=== PATIENT | female | born 1940 | race Caucasian/White ===

== ENCOUNTER → 2017-09-18 | Outpatient (CLI) | payer MEDICARE ==
--- NOTE | 2017-09-18 15:25 | 2DMMODE ---
[place] [address] 2 D/M-MODE ECHOCARDIOGRAM Name: ELIZABETH LOPEZ Room: [facility]#: [id number] Admission: 09/18/17 Attend Phys: Solis Santos Discharge: Date of : 38 Date of Service: 09/18/17 1525 Report #: [id number] THIS REPORT FOR: //name// APPROVED REPORT Study performed: 09/18/2017 14:06:45 EXAM: Comprehensive 2D, Doppler, and color-flow Echocardiogram Patient Location: Out-Patient Status: routine BSA: 2.10 HR: 89 bpm BP: 150/80 mmHg Other Information Study Quality: Adequate Indications Aortic Valve Disease 2D Dimensions LVEF(%): 61.77 (>50%) IVSd: 13.15 (7-11mm) LVOT Diam: 20.32 (18-24mm) LVDd: 43.60 mm PWd: 12.22 (7-11mm) Ascending Ao: 29.22 (22-36mm) LVDs: 29.22 (25-40mm) Aortic Root: 27.04 mm Trinidad's LVEF: 61.77 % Volumes Left Atrial Volume (Systole) LA ESV Index: 21.00 mL/m2 Aortic Valve AoV Peak Javad.: 3.24 m/s AO Peak Gr.: 42.01 mmHg LVOT Max P.63 mmHg AO Mean Gr.: 24.29 mmHg LVOT Mean P.48 mmHg LVOT Max V: 1.08 m/s AO V2 VTI: 55.22 cm LVOT Mean V: 0.73 m/s CARYN (VTI): 1.26 cm2 LVOT V1 VTI: 21.38 cm Mitral Valve MV Peak Gr.: 9.04 mmHg MV Mean Gr.: 4.85 mmHg E/A Ratio: 0.65 [place] [address] 2 D/M-MODE ECHOCARDIOGRAM Name: ELIZABETH LOPEZ Room: [facility]#: [id number] Admission: 09/18/17 Attend Phys: Solis Santos Discharge: Date of : 38 Date of Service: 09/18/17 1525 Report #: [id number] MV Decel. Time: 281.78 ms MV E Max Javad.: 0.88 m/s MV PHT: 81.72 ms MVA (PHT): 2.69 cm2 TDI E/Lateral E': 22.00 E/Medial E': 22.00 Medial E' Javad.: 0.04 m/s Lateral E' Javad.: 0.04 m/s Pulmonary Valve PV Peak Javad.: 1.14 m/s PV Peak Gr.: 5.17 mmHg Tricuspid Valve TR Peak Gr.: 26.57 mmHg RVSP: 31.57 mmHg Left Ventricle The left ventricle is normal size. There is normal LV segmental wall motion. Mild concentric left ventricular hypertrophy. Left ventricular systolic function is normal. The left ventricular ejection fraction is within the normal range. LVEF is 60-65%. Grade I - abnormal relaxation pattern. Right Ventricle The right ventricle is normal size. The right ventricular systolic function is normal. Atria Left atrium is moderately dilated. The right atrium size is normal. Aortic Valve Aortic valve is moderately calcified. No aortic regurgitation is present. Moderate aortic stenosis. Mitral Valve Severe mitral annular calcification. Mild mitral regurgitation. No significant mitral valve stenosis. Tricuspid Valve The tricuspid valve is normal in structure. Mild tricuspid regurgitation. The RVSP is __31.6 mmHg. Pulmonic Valve The pulmonary valve is normal in structure. Mild [place] [address] 2 D/M-MODE ECHOCARDIOGRAM Name: JESSICAELIZABETH Zavala Room: [facility]#: [id number] Admission: 09/18/17 Attend Phys: Solis Santos Discharge: Date of : 38 Date of Service: 09/18/17 1525 Report #: [id number] Great Vessels The aortic root is normal in size. IVC is normal in size and collapses with >50% inspiration Pericardium There is no pericardial effusion. <Conclusion> The left ventricle is normal size. Mild concentric left ventricular hypertrophy. Left ventricular systolic function is normal. The left ventricular ejection fraction is within the normal range. LVEF is 60-65%. Grade I - abnormal relaxation pattern. The right ventricle is normal size. Left atrium is moderately dilated. Aortic valve is moderately calcified. No aortic regurgitation is present. Moderate aortic stenosis. Severe mitral annular calcification. Mild mitral regurgitation. No significant mitral valve stenosis. The tricuspid valve is normal in structure. Mild tricuspid regurgitation. The RVSP is __31.6 mmHg. IVC is normal in size and collapses with >50% inspiration There is no pericardial effusion. There is normal LV segmental wall motion. <ELECTRONICALLY SIGNED> By: Allen Chong MD, FACC 09/18/17 1525 1525 1525 Allen Chong MD, FACC /INF
== END ==
LOC: M.CRD 13:41
DX: I08.1 Rheumatic disorders of both mitral and tricuspid valves (principal)

== ENCOUNTER → 2018-03-28 | Outpatient (CLI) | payer MEDICARE ==
[~2018-03-28] MED LIST: CARDIZEM CD240 MG PO; GLIPIZIDE XL5 MG PO; IBUPROFEN 600600 M1 PO; KLOR-CON 1010 MEQ PO; LASIX 20 MG TAB20 MG PO; LOSARTAN/HCTZ PO; SYNTHROID150 MCG PO; VITAMIN D3400 UNIT PO
[2018-03-28 12:42] LABS: CREATININE 0.6 mg/dL (0.6-1.3)
== END ==
LOC: M.LAB 12:00 → M.CT 13:00
PROVIDERS: Nurse Practitioner Family
DX: I25.10 Atherosclerotic heart disease of native coronary artery without angina pectoris (principal); I35.8 Other nonrheumatic aortic valve disorders; I34.8 Other nonrheumatic mitral valve disorders; R04.2 Hemoptysis; Z85.51 Personal history of malignant neoplasm of bladder

== ENCOUNTER 2018-07-01 10:09 | Inpatient (IN) | payer MEDICARE ==
[2018-07-01] VITALS (14 sets, daily range): BP systolic 126–183; BP diastolic 61–86
[~2018-07-01] VITALS: Ht 165.1 cm; Wt 109.8 kg
--- NOTE | ~2018-07-01 | CON ---
[address] [address] CONSULTATION Name: ELIZABETH LOPEZ Room: [address] IN M.R.#: [id number] Admission: 07/01/18 Attend Phys: Ramy Barrow Discharge: Date of : 38 Report #: [id number] THIS REPORT FOR: //name// CC: Kenny Mccloud DATE OF SERVICE: 07/01/2018 HISTORY OF PRESENT ILLNESS: This is a 78-year-old female patient whose consultation was kindly requested by Dr. Castorena from Emergency Room. As I understand from him, the history was difficult in this patient. I tried to talk to the patient's and the patient herself and the history was difficult. What is clear is that this patient had an episode of speech difficulty yesterday. It lasted about 30 minutes. It resolved spontaneously. They did not seek any medical attention. Then, the patient had another episode yesterday evening when she again lost her speech. That is where the confusion was and it was not clear whether the patient returned back to the baseline or not, but after talking to the patient on a considerable amount of time, Dr. Castorena determined that the patient had returned to the baseline. Apparently, this morning, she got up and she was okay and subsequently had the speech difficulty again. Again, the history is not very clear, but after talking to the patient's and the patient as per Dr. Castorena determined that she was back to her baseline. CT scan of the head was done and that did not show any abnormality. Dr. Castorena discussed the indication, potential complication, and alternatives with the patient's and the patient and after discussing all of them and after excluding any contraindication, he started the patient on TPA and the Neurology consult was requested. I talked to Dr. Castorena on the phone and subsequently came and saw the patient in the Emergency Room. I tried to get the patient's history from the patient herself as well as the . They are very nice people, but I think they are very poor historian. The history I get is very difficult and is exactly the same what Dr. Castorena got from them. First episode she returned back to the baseline. Second episode you really have to dig into the patient's history from the as well as from the patient herself, but from all indication ultimately it would appear that the patient did return to the baseline in between. She had no prior history of stroke. REVIEW OF SYSTEMS: Indicate that she does not have any headache. She does have what looks like murmur in the heart that is for a long time. They indicated that the patient does not smoke or drink any alcohol. She is a diabetic, but her blood sugar was not too bad. She had gallbladder removed in the past. That was a relevant 14-point review of system. PAST MEDICAL HISTORY: [place] [address] CONSULTATION Name: ELIZABETH LOPEZ Room: [address] IN ..#: [id number] Admission: 07/01/18 Attend Phys: Ramy Barrow Discharge: Date of : 38 Report #: [id number] FAMILY HISTORY: Negative for early age stroke. SOCIAL HISTORY: She does not drink alcohol or smoke. PHYSICAL EXAMINATION: Indicate that the patient is alert and responsive. She could not tell me what month it is. She can follow simple command. She has pretty significant aphasia. Aphasia makes it very difficult to examine her. I can tell about the visual field, but I do not see any marked motor or sensory deficit on either side. There is no meningeal sign. Heart does indicate a murmur. Pulses are somewhat difficult to feel. There is no edema, cyanosis or jaundice. There is no thyroid mass. When she came in, her blood pressure was somewhat high at 183, but subsequently it is 171/86. LABORATORY DATA: Her white count was trace high at 11.1. I reviewed the patient's CT angio, MRI and I discussed with the radiologist. 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 MRI confirmed that there is no hemorrhage, so far. 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 That is an incidental finding and that needs to be addressed. It will be difficult to coil aneurysm and may have to be addressed some other time. RECOMMENDATIONS: 1. I had a long talk with this patient and the . She already received TPA. TPA was delayed because the history was not clear in the beginning as I mentioned above. History was that symptom has started yesterday, but then the best it could be determined, she has returned back to her baseline indicating those were TIAs and now the symptoms were permanent from today indicating that the time she had is most likely a stroke, but that is presumptive and the understand that, so she was given appropriately the TPA in the Emergency Room after excluding any contraindication as I understand. She is not a candidate for any further intervention at the moment. This is because she has no thrombus sitting in any of the large vessels. We need to follow the TPA protocol and need to keep the blood pressure lower than 180 systolic. She does need speech therapy. We will order that. We will see if she can swallow and she will need pretty extensive speech therapy in that she had a large stroke and I suspect this to be a longstanding problem. The patient was subsequently discussed with Dr. Mccloud who is admitting physician. More than 50 minutes of time was spent taking care of this patient today and majority of that time was spent counseling the patient and the family and [place] [address] CONSULTATION Name: ELIZABETH LOPEZ Room: [address] IN [facility].#: [id number] Admission: 07/01/18 Attend Phys: Ramy Barrow Discharge: Date of : 38 Report #: [id number] Thank you very much for this referral. By: 1549 [id number] Burns MD /semaj
[2018-07-01 10:30] LABS: ABSOLUTE EOSINOPHILS 0.2 thou/uL (0.0-0.7); ABSOLUTE LYMPHOCYTES 2.8 thou/uL (0.8-5.3); ABSOLUTE MONOCYTES 0.9 thou/uL (0.0-1.2); ABSOLUTE NEUTROPHILS 7.2 thou/uL (1.6-8.1); BASOPHILS 0.1 %; EOSINOPHILS 1.7 %; HEMATOCRIT 42.5 % (37.0-47.0); HEMOGLOBIN 14.2 gm/dL (12.0-15.0); LYMPHOCYTES 25.4 %; MCH 30.6 pg (26.0-34.0); MCHC 33.4 g/dL (28.0-37.0); MCV 91.4 fL (80.0-100.0); MONOCYTES 7.8 %; MPV 8.9 fl. (7.2-11.1); NUCLEATED RBCS 0 /100WBC; PLATELET COUNT* 286 thou/uL (150-400); RBC 4.65 mil/uL (4.20-5.00); RDW-CV 13.8 % (10.5-14.5); WBC 11.1 thou/uL (4.0-11.0)
[2018-07-01 10:43] LABS: APTT 25.5 Seconds (25.0-31.3); PROTIME 10.1 Seconds (9.20-11.50)
[2018-07-01 11:02] LABS: ALBUMIN 4.2 g/dL (3.4-5.0); ALKALINE PHOSPHATASE 85 U/L (46-116); ANION GAP 12 mmol/L (7-16); BUN 16 mg/dL (7-18); CALCIUM 9.7 mg/dL (8.5-10.1); CHLORIDE 101 mmol/L (98-107); CO2 29 mmol/L (21-32); CREATININE 0.7 mg/dL (0.6-1.3); GLUCOSE 127 mg/dL (70-99); NT-PRO BRAIN NAT PEPTIDE 341 pg/mL (<300); POTASSIUM 3.2 mmol/L (3.5-5.1); SGOT 28 U/L (15-37); SGPT 31 U/L (30-65); SODIUM 142 mmol/L (136-145); TOTAL BILIRUBIN 0.4 mg/dL (<0.1-1.0); TOTAL PROTEIN 8.3 g/dL (6.4-8.2); TROPONIN-I LEVEL <0.06 ng/mL (<0.06)
[2018-07-01 11:10] LABS: URINE BILIRUBIN NEGATIVE (Negative); URINE BLOOD NEGATIVE (Negative); URINE CLARITY CLEAR; URINE COLOR STRAW; URINE GLUCOSE-RANDOM NEGATIVE (Negative); URINE KETONES NEGATIVE (Negative); URINE LEUKOCYTES-REFLEX NEGATIVE (Negative); URINE NITRITE-REFLEX NEGATIVE (Negative); URINE PROTEIN NEGATIVE (Negative); URINE SPECIFIC GRAVITY < 1.005 (1.005-1.030); URINE UROBILINOGEN 0.2 E.U./dl (0.2-1.0)
[2018-07-01] MEDS ORDERED: VITAMIN D3400 UNIT PO (12:20)
[2018-07-01] MEDS ORDERED: SYNTHROID150 MCG PO (12:21)
[2018-07-01] MEDS ORDERED: LASIX 20 MG TAB20 MG PO (12:21)
[2018-07-01] MEDS ORDERED: GLIPIZIDE XL5 MG PO (12:21)
[2018-07-01] MEDS ORDERED: KLOR-CON 1010 MEQ PO (12:22)
[2018-07-01] MEDS ORDERED: LOSARTAN/HCTZ PO (12:22)
[2018-07-01] MEDS ORDERED: IBUPROFEN 600600 M1 PO (12:23)
[2018-07-01] MEDS ORDERED: CARDIZEM CD240 MG PO (12:23)
[2018-07-01 16:38] LABS: CHOLESTEROL 260 mg/dL (<200); HDL CHOLESTEROL 58 mg/dL (>40); LDL CHOLESTEROL 161 mg/dL (<100); SERUM ASSESSMENT Clear; TC:HDL 4.5 Ratio (Not establshd); TRIGLYCERIDE 205 mg/dL (<150); VLDL 41 mg/dL (<40)
--- NOTE | 2018-07-01 16:50 | EKG ---
[place] [address] ELECTROCARDIOGRAM REPORT Name: ELIZABETH LOPEZ Room: [address] ADM IN M.R.#: [id number] Admission: 07/01/18 Attend Phys: Ramy Barrow Discharge: Date of : 38 Report #: [id number] THIS REPORT FOR: //name// [facility] ED Test Date: 2018-07-01 Test Time: 10:18:42 Pat Name: ELIZABETH LOPEZ Department: Room: [facility] Gender: F Insurance Inspector: Solis DANIEL : 1940 Requested By: Dangelo Castorena Order Number: [id number] MD: Carlos De La O Measurements Intervals [place] Rate: 88 P: 47 TX: 153 QRS: -29 QRSD: 93 T: 54 QT: 392 QTc: 475 Interpretive Statements Sinus rhythm Atrial premature complex Borderline left axis deviation Minimal ST depression, lateral leads Compared to ECG 03/04/2015 09:51:30 Atrial premature complex(es) now present ST (T wave) deviation now present Prolonged QT interval no longer present Electronically Signed On 07-01-2018 16:50:23 PARTNER by Carlos De La O [email or web address] <ELECTRONICALLY SIGNED> By: Carlos De La O MD, FACC 07/01/18 1650 1018 [id number] Carlos De La O MD, FACC /EPI
[2018-07-01 23:09] LABS: GLYCOHEMOGLOBIN (HGB A1C) 6.4 % (4.8-5.6)
[2018-07-02] VITALS (15 sets, daily range): BP systolic 118–152; BP diastolic 63–83
[2018-07-02 06:13] LABS: ALBUMIN 3.4 g/dL (3.4-5.0); CALCIUM 8.9 mg/dL (8.5-10.1); CREATININE 0.6 mg/dL (0.6-1.3); MAGNESIUM 1.9 mg/dL (1.8-2.4); POTASSIUM 4.2 mmol/L (3.5-5.1); TOTAL BILIRUBIN 0.6 mg/dL (<0.1-1.0); TOTAL PROTEIN 6.7 g/dL (6.4-8.2)
--- NOTE | 2018-07-02 15:16 | 2DMMODE ---
[place] [address] 2 D/M-MODE ECHOCARDIOGRAM Name: ELIZABETH LOPEZ Room: [address] IN [facility]#: [id number] Admission: 07/01/18 Attend Phys: Armin Mccloud Discharge: Date of : 38 Date of Service: 07/02/18 1516 Report #: [id number] THIS REPORT FOR: //name// APPROVED REPORT Study performed: 07/02/2018 10:17:15 EXAM: Comprehensive 2D, Doppler, and color-flow Echocardiogram Patient Location: In-Patient Room #: 006 Status: routine BSA: 2.15 HR: 77 bpm BP: 152/74 mmHg Rhythm: NSR Other Information Study Quality: Good Indications CVA/TIA Echo Enhancing Agent Indication: Rule out Shunt Agent(s) / Amount(s) Used: Agitated Saline 10 cc 2D Dimensions IVSd: 17.10 (7-11mm) LVOT Diam: 21.91 (18-24mm) LVDd: 46.91 mm PWd: 13.90 (7-11mm) Ascending Ao: 28.97 (22-36mm) LVDs: 32.93 (25-40mm) Aortic Root: 28.48 mm Aortic Valve AoV Peak Javad.: 3.87 m/s AO Peak Gr.: 59.79 mmHg LVOT Max P.07 mmHg AO Mean Gr.: 33.09 mmHg LVOT Mean P.60 mmHg LVOT Max V: 0.88 m/s AO V2 VTI: 89.58 cm LVOT Mean V: 0.59 m/s CARYN (VTI): 0.82 cm2 LVOT V1 VTI: 19.42 cm Mitral Valve MV Mean Gr.: 4.26 mmHg E/A Ratio: 1.29 MV Decel. Time: 270.47 ms MV E Max Javad.: 1.56 m/[place] [address] 2 D/M-MODE ECHOCARDIOGRAM Name: ELIZABETH LOPEZ Room: [address] IN .R.#: [id number] Admission: 07/01/18 Attend Phys: Armin Mccloud Discharge: Date of : 38 Date of Service: 07/02/18 1516 Report #: [id number] MV PHT: 78.44 ms MVA (PHT): 2.80 cm2 TDI E/Lateral E': 19.50 E/Medial E': 15.60 Medial E' Javad.: 0.10 m/s Lateral E' Javad.: 0.08 m/s Pulmonary Valve PV Peak Javad.: 0.77 m/s PV Peak Gr.: 2.37 mmHg Tricuspid Valve RAP Estimate: 5.00 mmHg TR Peak Gr.: 33.56 mmHg RVSP: 38.00 mmHg PA Pressure: 38.00 mmHg Left Ventricle The left ventricle is normal size. There is normal LV segmental wall motion. Mild to moderate concentric left ventricular hypertrophy. Left ventricular systolic function is normal. The left ventricular ejection fraction is within the normal range. LVEF is 60%. The left ventricular diastolic function is normal. Right Ventricle The right ventricle is normal size. The right ventricular systolic function is normal. Atria Left atrium is moderately dilated. Interatrial septum is intact without evidence of ASD or PFO. The right atrium size is normal. Aortic Valve Severe aortic valve sclerosis. No aortic regurgitation is present. Moderate to severe aortic stenosis. Mitral Valve Severe mitral annular calcification. Mild mitral regurgitation. No significant mitral valve stenosis. Tricuspid Valve The tricuspid valve is normal in structure. Mild tricuspid regurgitation. Mild pulmonary hypertension. Pulmonic Valve The pulmonary valve is normal in structure[place] [address] 2 D/M-MODE ECHOCARDIOGRAM Name: ELIZABETH LOPEZ Room: [address] IN .R.#: [id number] Admission: 07/01/18 Attend Phys: Armin Mccloud Discharge: Date of : 38 Date of Service: 07/02/18 1516 Report #: [id number] regurgitation. Great Vessels The aortic root is normal in size. IVC is normal in size and collapses >50% with inspiration. Pericardium There is no pericardial effusion. <Conclusion> The left ventricle is normal size. Mild to moderate concentric left ventricular hypertrophy. Left ventricular systolic function is normal. The left ventricular ejection fraction is within the normal range. LVEF is 60%. The left ventricular diastolic function is normal. The right ventricle is normal size. Left atrium is moderately dilated. Severe aortic valve sclerosis. No aortic regurgitation is present. Moderate to severe aortic stenosis. Severe mitral annular calcification. Mild mitral regurgitation. No significant mitral valve stenosis. The tricuspid valve is normal in structure. Mild tricuspid regurgitation. Mild pulmonary hypertension. IVC is normal in size and collapses >50% with inspiration. There is no pericardial effusion. There is normal LV segmental wall motion. <ELECTRONICALLY SIGNED> By: Allen Chong MD, FACC 07/02/18 1516 151 151 Allen Chong MD, FACC /INF
[2018-07-03] VITALS (10 sets, daily range): BP systolic 93–159; BP diastolic 36–91
[2018-07-04] VITALS (20 sets, daily range): BP systolic 111–151; BP diastolic 49–79
[2018-07-04] MEDS ORDERED: ASPIRIN325 PO (08:14)
[2018-07-04] MEDS ORDERED: ZETIA10 MG PO (08:14)
[2018-07-04] MEDS ORDERED: FISH OIL 1,001000 M2 PO (08:14)
[2018-07-04] MEDS ORDERED: COZAAR 25 MG TA25 M1 PO (08:14)
[2018-07-04] MEDS ORDERED: COLACE 100 MG100 MG PO (08:14)
--- NOTE | 2018-07-04 15:21 | TEE ---
[place] [address] TRANSESOPHAGEAL ECHOCARDIOGRAM Name: ELIZABETH LOPEZ Room: [address] IN [facility]#: [id number] Admission: 07/01/18 Attend Phys: Armin Mccloud Discharge: Date of : 38 Date of Service: 07/04/18 1521 Report #: [id number] THIS REPORT FOR: //name// APPROVED REPORT Study performed: 07/04/2018 13:18:22 EXAM: Transesophageal Echocardiogram Patient Location: In-Patient Room #: 006 Status: routine BSA: 2.15 HR: 84 bpm BP: 141/70 mmHg Rhythm: NSR Other Information Study Quality: Good Indications CVA/TIA Echo Enhancing Agent Indication: Rule out Shunt Agent(s) / Amount(s) Used: Agitated Saline 10 cc Procedure After obtaining informed consent, patient underwent transesophageal echo in the [employer]. Type of Sedation : Conscious Sedation Sedation was administered by Tess Cortes. Sedation start time: 1318 Case end Time: 1340 Sedation was achieved intravenously with: Versed (2) Fentanyl (50) Transesophageal probe was inserted and advanced into esophagus without difficulty by Carlos De La O MD, FACC. Echo enhancement indication: R/O Septal defect. Echo enhancement agent administered: Agitated Saline The LILA was performed without complications. Throughout the procedure, the blood pressure, pulse oximetry, cardiac rhythm, and rate were monitored. The patient tolerated the procedure without adverse effects. Recovery from conscious sedation was uneventful and vital signs [place] [address] TRANSESOPHAGEAL ECHOCARDIOGRAM Name: LUCAMEGANELIZABETH Room: [address]#: [id number] Admission: 07/01/18 Attend Phys: Armin Mccloud Discharge: Date of : 38 Date of Service: 07/04/18 1521 Report #: [id number] Left Ventricle The left ventricle is normal size. There is normal LV segmental wall motion. Mild to moderate concentric left ventricular hypertrophy. The left ventricular systolic function is normal. LVEF is 60-65%. Right Ventricle The right ventricle is normal size. The right ventricular systolic function is normal. Atria Left atrium is moderately dilated. No thrombus is visualized in the left atrium or appendage. Interatrial septum is intact without evidence of ASD or PFO. The right atrium size is normal. Aortic Valve Severe aortic valve sclerosis. No aortic regurgitation is present. Moderate to severe aortic stenosis. Mitral Valve Moderate mitral annular calcification. Moderate mitral regurgitation. Tricuspid Valve The tricuspid valve is normal in structure. Mild tricuspid regurgitation. Pulmonic Valve Pulmonic valve is not well visualized. Great Vessels The aortic root is normal in size. <Conclusion> The left ventricle is normal size. Mild to moderate concentric left ventricular hypertrophy. The left ventricular systolic function is normal. LVEF is 60-65%. Left atrium is moderately dilated. No thrombus is visualized in the left atrium or appendage. Interatrial septum is intact without evidence of ASD or PFO. Severe aortic valve sclerosis. Moderate to severe aortic stenosis. Moderate mitral annular [place] [address] TRANSESOPHAGEAL ECHOCARDIOGRAM Name: ELIZABETH LOPEZ Room: [address] IN [facility].#: [id number] Admission: 07/01/18 Attend Phys: Armin Mccloud Discharge: Date of : 38 Date of Service: 07/04/18 152 Report #: [id number] Moderate mitral regurgitation. Mild tricuspid regurgitation. <ELECTRONICALLY SIGNED> By: Carlos De La O MD, FACC 07/04/18 152 20 20 Carlos De La O MD, FACC /INF
== END 2018-07-04 18:00 | DRG 62 ==
LOC: M.ERS 10:09 → M.ICU 11:50 → M.TBA-ER 11:50 → M.ICU 14:26 → M.2W 07-03 15:54
PROVIDERS: Family Medicine; ADMIT Internal Medicine
PROC: 3E05317 Introduction of Other Thrombolytic into Peripheral Artery, Percutaneous Approach (ICD-10-PCS; principal; 2018-07-01)
PROC: B24BZZ4 Ultrasonography of Heart with Aorta, Transesophageal (ICD-10-PCS; 2018-07-04)
DX: I63.9 Cerebral infarction, unspecified (principal); Z68.41 Body mass index [BMI] 40.0-44.9, adult; E03.9 Hypothyroidism, unspecified; I10 Essential (primary) hypertension; R73.03 Prediabetes; I35.0 Nonrheumatic aortic (valve) stenosis; E78.2 Mixed hyperlipidemia; E66.9 Obesity, unspecified; Z90.49 Acquired absence of other specified parts of digestive tract; Z88.8 Allergy status to other drugs, medicaments and biological substances; Z82.49 Family history of ischemic heart disease and other diseases of the circulatory system; Z79.899 Other long term (current) drug therapy

== ENCOUNTER 2018-07-04 17:19 | Inpatient (IN) | payer MEDICARE ==
[~2018-07-04] VITALS: Ht 165.1 cm; Wt 108.0 kg
--- NOTE | ~2018-07-04 | PLAN ---
[address] [address] REHAB UNIT PLAN OF CARE Name: ELIZABETH LOPEZ Room: [address] IN .R.#: [id number] Admission: 07/04/18 Attend Phys: Kyra Silva DO Discharge: Date of : 38 Report #: [id number] THIS REPORT FOR: //name// CC: Kenny Hargrove [facility] physician/PCP Kyra Silva SUBJECTIVE: The patient reports doing well this afternoon. The patient was admitted to the ER at [facility] on 07/01/2018 and was then discharged and admitted to the acute inpatient rehabilitation facility at [facility] on 07/04/2018. The patient states that therapies went well this morning. Previous level of function was modified independent to independent. Current level of function is minimal to max assist. Estimated length of stay is 14-16 days. Rehabilitation prognosis is good. Medical prognosis is good. PT will see the patient 60-90 minutes per day for 5 days a week for ambulation, balance and coordination. OT will see the patient 60-90 minutes per day for 5 days a week for upper extremity strength, balance, coordination, bathing, dressing and toileting. Speech and Language Pathology will see the patient 30-90 minutes per day for 5 days a week. This is an overall plan of care and may change and will be updated as needed. By: 1418 [id number] Silva DO /semaj
--- NOTE | ~2018-07-04 | D ---
[facility] [address] [place] [address] DISCHARGE SUMMARY Name: LUCAMEGANELIZABETH Room: [address] IN .R.#: [id number] Admission: 07/04/18 Attend Phys: Kyra Silva DO Discharge: Date of : 38 Report #: [id number] THIS REPORT FOR: //name// CC: Kenny Hargrove [facility] physician/PCP Kyra Silva DISCHARGE DIAGNOSIS: Left frontal lobe cerebrovascular accident. DISCHARGE DISPOSITION: To home with outpatient speech and language pathology as well as home exercise program for physical and occupational therapy. She will follow up with her primary care physician within 7 days and Neurology in 2-4 weeks. Notifications for physician were given. DIET: Carb control diabetic diet. Monitor weight gain, 25/02 supervision for safety, fall precautions. MEDICATIONS: Reviewed and reconciled by myself and are available in the MAR. No prescriptions at this time were needed. HOSPITAL COURSE: The patient did progress with her therapies and was able to discharge to the home setting with outpatient speech and language therapy, which she will start at some time in the next 1-3 days. She does have supportive family and accessible house that can continue with home exercise program on a physical and occupational level. DISCHARGE PHYSICAL EXAMINATION: GENERAL: Alert, oriented, no apparent distress. VITAL SIGNS: Reviewed and are stable. HEENT: Head atraumatic, normocephalic. Pupils equal, round, reactive. ABDOMEN: Soft, nontender, nondistended. NEUROLOGIC: Cranial nerves 2-12 are grossly intact with no focal neuro deficits, 5/5 strength in the bilateral upper and lower extremities. SKIN: Warm and dry. No rashes or lesions noted. By: 1524 1543Kangelique Silva DO /nt
[~2018-07-04 17:19] MED LIST changes: +ASPIRIN325 PO; +COLACE 100 MG100 MG PO; +COZAAR 25 MG TA25 M1 PO; +FISH OIL 1,001000 M2 PO; +ZETIA10 MG PO
[2018-07-04 18:23] VITALS: BP 136/64
[2018-07-04 19:00] VITALS: BP 130/61
--- NOTE | 2018-07-04 19:51 | NUR ---
PT. ARRIVED PER W/C TO ROOM 328 W PER W/C WITH BELONGINGS DISCHARGE INSTRUCTIONS. ALERT ORIENTED PLEASANT COOPERATIVE HX OF L FRONTAL CVA. 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 LEG. DENIES PAIN. HAS ISSUES WITH MEMORY DUE TO CVA. ORIENTED TO ROOM AND REHAB ROUTINE. DR. KAN VERIFIED ORDERS. PT. ARRIVED AT 1800. CALL LIGHT CONVENIENT FOR USE. LAST BM WAS 07/02/18.
[2018-07-05 04:23] LABS: HEMATOCRIT 34.5 % (37.0-47.0); MCH 30.4 pg (26.0-34.0); MCHC 33.3 g/dL (28.0-37.0); MCV 91.4 fL (80.0-100.0); MPV 9.3 fl. (7.2-11.1); RBC 3.77 mil/uL (4.20-5.00); RDW-CV 13.9 % (10.5-14.5)
[2018-07-05 04:26] LABS: CALCIUM 8.5 mg/dL (8.5-10.1); CREATININE 0.6 mg/dL (0.6-1.3); POTASSIUM 3.6 mmol/L (3.5-5.1)
[2018-07-05 04:55] LABS: HEMOGLOBIN 11.5 gm/dL (12.0-15.0)
[2018-07-05 08:57] VITALS: BP 141/70
[2018-07-05 09:16] VITALS: BP 141/70
--- NOTE | 2018-07-05 18:02 | NUR ---
ASSUMED CARE AT 0730 PATIENT ALERT/ORIENTED, NO COMPLAINTS OF PAIN, UP WITH ASSIST OF ONE AND WALKER/GAIT BELT, TO DINING ROOM FOR MEALS, BED/CHAIR ALARMS IN PLACE, CALL LIGHT IN REACH. PARTICIPATED IN ALL THERAPIES TODAY, HOURLY ROUNDING COMPLETED
[2018-07-05 19:35] VITALS: BP 132/72
[2018-07-05 19:55] VITALS: BP 136/66
--- NOTE | 2018-07-05 19:55 | NUR ---
SITTING UP IN CHAIR WATCHING TV. AMBULATED EARLIER WITH OTHER RN ON DUTY TO THE BATHROOM WITH SBA, GAITBELT, WALKER. DID OWN BROOKE CARE AND CLOTHING ADJUSTMENTS. DID REQUIRE ASSIST WITH LIFTING LEGS INTO BED. HAS EXPRESSIVE APHASIA BUT ABLE TO COMMUNICATE BASIC NEEDS.
--- NOTE | 2018-07-06 05:51 | NUR ---
RESTED QUIETLY. UP X ONE DURING THE NIGHT TO THE BATHROOM TO VOID. HOURLY ROUNDING IN PROGRESS.
[2018-07-06 08:05] VITALS: BP 125/65
--- NOTE | 2018-07-06 16:48 | NUR ---
ASSUMED CARE AT 0730 PATIENT ALERT/ORIENTED, NO COMPLAINTS OF PAIN THIS SHIFT, UP WITH ASSIST OF ONE WITH WALKER/GAIT BELT, TO DINING ROOM FOR MEALS, BED/CHAIR ALARMS IN PLACE, CALL LIGHT IN REACH, HOURLY ROUNDING COMPLETED. VISITING WITH AND FAMILY AT BEDSIDE.
[2018-07-06 19:35] VITALS: BP 139/68
--- NOTE | 2018-07-06 19:45 | NUR ---
SITTING UP IN RECLINER WITH LEGS ELEVATED. HAS EXPRESSIVE APHASIA BUT ABLE TO COMMUNICATE NEEDS. SAYING MORE WORDS TONIGHT THAN AT THIS TIME LAST NIGHT. DENIES DISCOMFORT. AMBULATED TO THE BATHROOM WITH SBA, GAITBELT, WALKER. DID OWN HYGIENE AND CLOTHING ADJUSTMENTS. BRUSHED HER DENTURES PRIOR TO GOING TO BED.
--- NOTE | 2018-07-07 04:58 | NUR ---
RESTED QUIETLY UNTIL NOW. AMBULATED TO THE BATHROOM TO VOID. BACK IN BED AND TURNED TV ON. IN GOOD SPIRITS. NO COMPLAINTS VOICED. HOURLY ROUNDING IN PROGRESS.
[2018-07-07 07:31] VITALS: BP 114/47
--- NOTE | 2018-07-07 14:38 | NUR ---
ASSUMED CARE AT 0730. ALERT ORIENTED PLEASANT COOPERATIVE. HX OF CVA L SIDE WEAKNESS. EXPRESSIVE APHASIA BUT ABLE TO MAKE NEEDS KNOWN. USES CALL LIGHT APPROPRIATELY FOR ASSISTANCE. BED CHAIR ALARM FOR PT. SAFETY. FEEDS SELF AND TAKES MEDS WITHOUT DIFFICULTY. APPETITE GOOD. DENIES PAIN OR REQUESTS. PARTICIPATING IN THERAPIES TO DR FOR MEALS. HERE VISITING AROUND LUNCH AND INTO AFTERNOON. SITTING UP IN RECLINER AT BEDSIDE WITH FEET ELEVATED.
--- NOTE | 2018-07-07 15:49 | NUR ---
SW met with pt to complete initial assessment, introduce self, and SW role. Pt alert, oriented. Pt lives at home with her who she says he is in better health than pt. Pt has a dtr who lives next door to pt. Pt explained that she has knee pain from medical history. Pt has RW, cane and in process of getting a wc. Pt does not have hx of services. Pt sees a STATIC BALANCER from Dr Kenny Hargrove's office. SW to continue to follow to assist with safe dc planning.
--- NOTE | 2018-07-07 19:50 | NUR ---
SITTING UP IN RECLINER. DENIES DISCOMFORT. AMBULATED TO THE BATHROOM WITH SBA, GAITBELT, WALKER. DID OWN HYGIENE AND CLOTHING ADJUSTMENTS. STOPPED AT SINK TO BRUSH DENTURES BEFORE GOING TO BED.
[2018-07-07 20:00] VITALS: BP 145/70
--- NOTE | 2018-07-08 05:30 | NUR ---
RESTED QUIETLY. NO COMPLAINTS VOICED. HOURLY ROUNDING IN PROGRESS.
[2018-07-08 07:54] VITALS: BP 138/70
--- NOTE | 2018-07-08 15:08 | NUR ---
ASSUMED CARE AT 0730. ALERT ORIENTED PLEASANT COOPERATIVE. HX OF CVA WITH EXPRESSIVE APHASIA. TRANSFERS WITH SBA G BELT WALKER AMBULATES TO BR VOIDS DOES OWN HYGEINE AND CLOTHING ADJUSTMENTS. FEEDS SELF TAKES MEDS WITHOUT DIFFICULTY. USES CALL LIGHT APPROPRIATELY FOR ASSIST. BED CHAIR ALARM FOR PT. SAFETY. NEEDS CUES FOR SAFETY LOCK BRAKES W/C BEFORE GETTING UP AND USE YOUR WALKER. PARTICIPATING IN THERAPIES THROUGHOUT THE DAY. DENIES PAIN OR REQUESTS. HERE VISITING AT LUNCH.
[2018-07-08 19:59] VITALS: BP 131/62
--- NOTE | 2018-07-09 01:42 | NUR ---
ASSUMED CARE @ 1934-07/08-.SITS IN RECLINER WATCHING TV.CHAIR ALARM ON ALREADY @ 1934.HAS EXPRESSIVE APHASIA.MIN.ASSIST W/ TRANSFERS.SBA FOR TOILETING.BED ALARM PUT ON @ 2100 WHILE IN BED.TURNS SELF @ NIGHT.ON HOURLY ROUNDS.BUTTON PUSHER DOING ODD HOUR ROUNDS.
--- NOTE | 2018-07-09 05:10 | NUR ---
SLEPT LATE SINCE 0000-07/09-SAT.BUT SLEPT GOOD ALL NIGHT.AWAKE ONCE FOR BRP #2 @ 0400.URINE ACCIDENT IN UNDERWEAR X1.MESH PANTY PUT ON.REFUSED HS SNACK. [place] @ 1958 PER SUPERINTENDENT PIPELINES-104/MIN.[place] CHECKED @ 419-RADIAL LYING-78/MIN-REGULAR.
[2018-07-09 07:30] VITALS: BP 125/58
--- NOTE | 2018-07-09 12:02 | NUR ---
Nutrition: Pt admitted to rehab withLt frontal CVA. Dyslipidemia. Labs: BG 130, TG 205, total cchol 260, alb 3.4. Eating 100% of CHO controlled diet. Wt: 165#. +BM. Low risk.
--- NOTE | 2018-07-09 16:04 | NUR ---
ZAY and med student Miller met with pt, pt and pt dtr to review team conference summary and plan for team to reassess pt length of stay during team conference next Saturday. Pt shook her head no and pt family advocated for pt to be able to dc sooner and not have to remain on inpt rehab another week. Pt dtr said that they feel pt is near functioning at a level pt was prior and pt stated that a caregiver would be home at all times to assist and supervise pt. ZAY explained that would ultimately be team and Dr Silva's final decision about pt dc date and if safe vs risks involved with dc sooner than team recommended during team conference. Miller to message Dr Silva about pt/family requesting earlier dc date rather than reteam...then pt and pt family to discuss with Dr Silva. ZAY to continue to follow to assist with safe dc planning.
--- NOTE | 2018-07-09 19:20 | NUR ---
SITTING UP IN RECLINER WATCHING TV. AMBULATED TO THE BATHROOM WITH SBA, GAITBELT, WALKER. DID OWN HYGIENE AND CLOTHING ADJUSTMENTS. DENIES DISCOMFORT.
--- NOTE | 2018-07-09 19:30 | NUR ---
SITTING UP IN RECLINER WATCHING TV. AMBULATED TO THE BATHROOM WITH SBA, GAITBELT, WALKER. DID OWN HYGIENE AND CLOTHING ADJUSTMENTS. DENIES DISCOMFORT.
--- NOTE | 2018-07-09 19:33 | NUR ---
ASSUMED CARE AT 0730 PATIENT ALERT/ORIENTED, NO COMPLAINTS OF PAIN THIS SHIFT, UP WITH STANDBY ASSIST AND WALKER/GAIT BELT, BED/CHAIR ALARMS IN PLACE, CALL LIGHT IN REACH, HOURLY ROUNDING COMPLETED. PARTICIPATED IN ALL THERAPIES TODAY, TO DINING ROOM FOR MEALS. PATIENT IS RETEAMED
[2018-07-09 20:28] VITALS: BP 139/62
--- NOTE | 2018-07-10 05:52 | NUR ---
UP X ONE DURING THE NIGHT TO THE TOILET TO VOID. NO COMPLAINTS VOICED. HOURLY ROUNDING IN PROGRESS.
[2018-07-10 09:34] VITALS: BP 116/58
[2018-07-10 20:18] VITALS: BP 143/70
--- NOTE | 2018-07-11 05:21 | NUR ---
ASSUMED PT CARE AT 1930. PT ALERT AND ORIENTED X4, POLITE AND COOPERATIVE WITH CARES. PT UNDERSTANDS CONVERSATION BUT NEEDS EXTRA TIME TO REPLY. DENIES PAIN. UP WITH SBA, GAIT BELT AND WALKER TO BATHROOM TO VOID. NO STOOL THIS SHIFT. PT SLEPT WELL OVERNIGHT. USES CALL LIGHT APPROPRIATELY. CALL LIGHT AND FREQUENTLY USED ITEMS WITHIN REACH. HOURLY ROUNDING IN PROGRESS, WILL CONTINUE TO MONITOR.
[2018-07-11 08:13] VITALS: BP 143/74
--- NOTE | 2018-07-11 15:42 | NUR ---
SW continuing to follow. Plan for reteam; pt and pt family agreed for pt to remain on inpt rehab unit and continue therapies to work towards pt goals.
--- NOTE | 2018-07-11 18:30 | NUR ---
ASSUMED CARE AT 0730 PATIENT ALERT/ORIENTED, NO COMPLAINTS OF PAIN THIS SHIFT, UP WITH STANDBY ASSIST AND WALKER/GAIT BELT, TO DINING ROOM FOR MEALS. PARTICIPATED IN ALL THERAPIES, BED/CHAIR ALARMS IN PLACE, HOURLY ROUNDING COMPLETED. CALL LIGHT IN REACH
[2018-07-11 20:17] VITALS: BP 134/61
--- NOTE | 2018-07-12 05:28 | NUR ---
ASSUMED PT CARE AT 1930. PT ALERT AND ORIENTED X4, POLITE AND COOPERATIVE WITH CARES. PT UNDERSTANDS CONVERSATION AND RESPONDS APPROPRIATELY WITH OCCASIONAL EXPRESSIVE APHASIA. UP WITH SBA, GAIT BELT AND WALKER TO BATHROOM TO VOID. NO STOOL THIS SHIFT. PT SLEPT WELL OVERNIGHT. USES CALL LIGHT APPROPRIATELY. CALL LIGHT AND FRQUENTLY USED ITEMS WITHIN REACH. HOURLY ROUNDING IN PROGRESS, WILL CONTINUE TO MONITOR.
[2018-07-12 07:30] VITALS: BP 122/61
--- NOTE | 2018-07-12 16:35 | NUR ---
ASSUMED CARE AT 0730. ALERT ORIENTED PLEASANT COOPERATIVE. HX OF CVA WITH EXPRESSIVE APHASIA. PARTICIPATING IN THERAPIES. USES CALL LIGHT APPROPRIATELY FOR ASSIST. ABLE TO DO HYGEINE AND CLOTHING ADJUSTMENTS AFTER USING BR, FEEDS SELF AND TAKES MEDS WITHOUT DIFFICULTY. SITTING UP IN RECLINER AT BEDSIDE SLEEPING AFTER THERAPIES COMPLETED.
[2018-07-12 20:00] VITALS: BP 145/67
--- NOTE | 2018-07-13 05:22 | NUR ---
ASSUMED PT CARE AT 1930. PT ALERT AND ORIENTED X4, POLITE AND COOPERATIVE WITH CARES. HX OF CVA WITH EXPRESSIVE APHASIA. DENIES PAIN. PT SITTING UP IN RECLINER AT SHIFT CHANGE WATCHING TELEVISION. UP WITH ASSIST OF ONE, GAIT BELT AND WALKER. PT DOES OWN PERICARE AND CLOTHING ADJUSTMENTS. TAKES PILLS WHOLE WITH WATER WITHOUT DIFFICULTY. USES CALL LIGHT APPROPRIATELY. CALL LIGHT AND FREQUENTLY USED ITEMS WITHIN REACH. HOURLY ROUNDING IN PROGRESS, WILL CONTINUE TO MONITOR.
[2018-07-13 07:30] VITALS: BP 122/61
--- NOTE | 2018-07-13 16:27 | NUR ---
ASSUMED CARE AT 0730. ALERT ORIENTED PLEASANT COOPERATIVE. HX OF CVA WITH EXPRESSIVE APHASIA. TRANSFERS WITH SBA G BELT WALKER AMBULATES TO BR TO VOID AND HAD A LARGE BM ABLE TO DO HYGEINE CLOTHING ADJUSTMENTS. USES CALL LIGHT APPROPRIATELY BUT IS FORGETFUL AT TIMES. DENIES PAIN OR CONCERNS. FEEDS SELF APPETITE GOOD. TAKES MEDS WITHOUT DIFFICULTY. HERE VISITING TODAY. SITTING IN RECLINER WITH BLES ELEVATED MOST OF THE DAY.
[2018-07-13 20:00] VITALS: BP 123/59
--- NOTE | 2018-07-14 05:03 | NUR ---
ASSUMED CARES AT 1920. ALERT AND ORIENTED. EXPRESSIVE APHASIA. PLEASANT. C/O STOMACH UPSET BUT REFUSED ANYTHING TO TREAT. TAKES PILLS WHOLE. MIN ASSIST WITH GAIT BELT AND WALKER. UP TO BATHROOM. DOES OWN CARES. SLEPT WELL. USED CALL LIGHT APPROPRIATELY. BED ALARM ON.
[2018-07-14 07:44] VITALS: BP 126/63
--- NOTE | 2018-07-14 17:49 | NUR ---
ASSUMED CARE AT 0730. ALERT AND ORIENTED PLEASANT AND COOPERATIVE. HX OF CVA EXPRESSIVE APHASIA. TRANSFERS WITH SBA G BELT WALKER AND AMBULATES TO BR VOIDS ABLE TO DO HYGEINE AND CLOTHING ADJUSTMENTS. USES CALL LIGHT APPROPRIATELY FOR ASSIST. TAKES MEDS WITHOUT DIFFICULTY WITH WATER. FEEDS SELF APPETITE GOOD. DENIES PAIN OR REQUESTS. PARTICIPATING IN THERAPIES. RESTING IN RECLINER AFTER THERAPIES COMPLETE HERE VISITING.
[2018-07-14 20:00] VITALS: BP 147/60
--- NOTE | 2018-07-15 05:15 | NUR ---
ASSUMED PT CARE AT 1930. PT ALERT AND ORIENTED X4, POLITE AND COOPERATIVE WITH CARES. HX OF CVA WITH EXPRESSIVE APHASIA. DENIES PAIN. PT SITTING UP IN RECLINER AT SHIFT CHANGE WATCHING TELEVISION. UP WITH ASSIST OF ONE, GAIT BELT AND WALKER. PT DOES OWN PERICARE AND CLOTHING ADJUSTMENTS WITH EXTRA TIME. TAKES PILLS WHOLE WITH WATER WITHOUT DIFFICULTY. USES CALL LIGHT APPROPRIATELY. CALL LIGHT AND FREQUENTLY USED ITEMS WITHIN REACH. HOURLY ROUNDING IN PROGRESS, WILL CONTINUE TO MONITOR.
[2018-07-15 08:29] VITALS: BP 118/59
[2018-07-15 14:34] VITALS: BP 118/59
[2018-07-15 14:57] VITALS: BP 118/59
--- NOTE | 2018-07-15 15:00 | NUR ---
ZAY met with pt and pt to discuss pt to dc home today. ZAY discussed recommendation for OP services to follow and pt has home exercise programs related to PT and OT. Pt and pt preference was for OP therapy at [facility]. ZAY called [facility] and then spoke with OP therapy dept fax [phone] ph [phone]. ZAY faxed referral, orders to OP therapy. Pt family to provide pt ride home.
== END 2018-07-15 15:45 | disposition home or self-care (01) | DRG 66 ==
LOC: M.3W 17:19 → M.REH 17:24 → M.TBA-ER 17:52 → M.REH 18:13 → M.TBA-ER 18:14 → M.REH 07-15 15:45
PROVIDERS: ADMIT Physical Medicine & Rehabilitation
DX: I63.9 Cerebral infarction, unspecified (principal); R47.01 Aphasia; Z88.8 Allergy status to other drugs, medicaments and biological substances; Z79.899 Other long term (current) drug therapy; Z79.1 Long term (current) use of non-steroidal anti-inflammatories (NSAID); Z90.49 Acquired absence of other specified parts of digestive tract; K57.90 Diverticulosis of intestine, part unspecified, without perforation or abscess without bleeding; I10 Essential (primary) hypertension; I35.0 Nonrheumatic aortic (valve) stenosis; E66.9 Obesity, unspecified; E03.9 Hypothyroidism, unspecified; R53.81 Other malaise; Z82.49 Family history of ischemic heart disease and other diseases of the circulatory system; Z68.39 Body mass index [BMI] 39.0-39.9, adult

== ENCOUNTER → 2018-08-07 | Outpatient (CLI) | payer MEDICARE ==
[2018-08-07 11:36] LABS: ABSOLUTE BASOPHILS 0.2 thou/uL (0.0-0.2); ABSOLUTE EOSINOPHILS 0.2 thou/uL (0.0-0.7); ABSOLUTE LYMPHOCYTES 2.2 thou/uL (0.8-5.3); ABSOLUTE MONOCYTES 0.9 thou/uL (0.0-1.2); ABSOLUTE NEUTROPHILS 7.9 thou/uL (1.6-8.1); BASOPHILS 1.3 %; EOSINOPHILS 1.6 %; HEMATOCRIT 41.1 % (37.0-47.0); HEMOGLOBIN 13.9 gm/dL (12.0-15.0); LYMPHOCYTES 19.6 %; MCH 30.4 pg (26.0-34.0); MCHC 33.8 g/dL (28.0-37.0); MCV 89.9 fL (80.0-100.0); MONOCYTES 8.3 %; MPV 9.3 fl. (7.2-11.1); NUCLEATED RBCS 0 /100WBC; PLATELET COUNT* 269 thou/uL (150-400); POLYS 69.2 %; RBC 4.57 mil/uL (4.20-5.00); RDW-CV 13.7 % (10.5-14.5); WBC 11.4 thou/uL (4.0-11.0)
[2018-08-07 18:08] LABS: IgA 360 mg/dL (64-422); IgG 989 mg/dL (700-1600); IgM 50 mg/dL (26-217)
== END ==
LOC: M.LAB 11:10
PROVIDERS: Psychiatry & Neurology Neuromuscular Medicine
DX: I63.9 Cerebral infarction, unspecified (principal); I35.0 Nonrheumatic aortic (valve) stenosis; R26.9 Unspecified abnormalities of gait and mobility; G62.9 Polyneuropathy, unspecified

== ENCOUNTER 2018-08-21 14:42 | Emergency (ER) | payer MEDICARE ==
[~2018-08-21] VITALS: Ht 167.6 cm; Wt 94.8 kg
[2018-08-21] MEDS ORDERED: COLACE100 MG PO (14:58)
[2018-08-21] MEDS ORDERED: ASPIRIN325 PO (14:58)
[2018-08-21 15:33] LABS: ABSOLUTE BASOPHILS 0.1 thou/uL (0.0-0.2); ABSOLUTE EOSINOPHILS 0.2 thou/uL (0.0-0.7); ABSOLUTE LYMPHOCYTES 2.3 thou/uL (0.8-5.3); ABSOLUTE MONOCYTES 0.9 thou/uL (0.0-1.2); ABSOLUTE NEUTROPHILS 7.8 thou/uL (1.6-8.1); BASOPHILS 1.1 %; EOSINOPHILS 1.6 %; HEMATOCRIT 41.9 % (37.0-47.0); HEMOGLOBIN 13.9 gm/dL (12.0-15.0); MCH 29.9 pg (26.0-34.0); MCHC 33.1 g/dL (28.0-37.0); MCV 90.4 fL (80.0-100.0); MPV 8.9 fl. (7.2-11.1); NUCLEATED RBCS 0 /100WBC; PLATELET COUNT* 320 thou/uL (150-400); POLYS 69.3 %; RBC 4.63 mil/uL (4.20-5.00); RDW-CV 13.7 % (10.5-14.5); WBC 11.3 thou/uL (4.0-11.0)
[2018-08-21 15:39] LABS: ANION GAP 8 mmol/L (7-16); BUN 20 mg/dL (7-18); CALCIUM 9.2 mg/dL (8.5-10.1); CHLORIDE 100 mmol/L (98-107); CO2 30 mmol/L (21-32); CREATININE 0.9 mg/dL (0.6-1.3); GLUCOSE 210 mg/dL (70-99); POTASSIUM 3.2 mmol/L (3.5-5.1); SODIUM 138 mmol/L (136-145)
[2018-08-21 15:50] LABS: ALBUMIN 3.3 g/dL (3.4-5.0); ALKALINE PHOSPHATASE 72 U/L (46-116); LIPASE 96 U/L (73-393); MAGNESIUM 1.6 mg/dL (1.8-2.4); NT-PRO BRAIN NAT PEPTIDE 108 pg/mL (<300); PROTIME 10.7 Seconds (9.20-11.50); SGOT 14 U/L (15-37); SGPT 23 U/L (30-65); TOTAL BILIRUBIN 0.3 mg/dL (<0.1-1.0); TOTAL PROTEIN 7.4 g/dL (6.4-8.2); TROPONIN-I LEVEL <0.06 ng/mL (<0.06)
[2018-08-21 18:09] VITALS: BP 145/63
--- NOTE | 2018-08-22 10:23 | EKG ---
[place] [address] ELECTROCARDIOGRAM REPORT Name: ELIZABETH LOPEZ Room: [facility]#: [id number] Admission: 08/21/18 Attend Phys: Discharge: 08/21/18 Date of : 38 Report #: [id number] THIS REPORT FOR: //name// [facility] ED Test Date: 2018-08-21 Test Time: 14:47:35 Pat Name: ELIZABETH LOPEZ Department: Room: Gender: F Day Porter: Ralph BRYANT : 1940 Requested By: Swapnil Kahn Order Number: [id number] MD: Allen Chong Measurements Intervals [place] Rate: 84 P: 53 MN: 173 QRS: -42 QRSD: 97 T: 87 QT: 385 QTc: 456 Interpretive Statements Sinus rhythm Probable left atrial enlargement Left anterior fascicular block Abnormal R-wave progression, late transition Compared to ECG 07/01/2018 10:18:42 Left anterior fascicular block now present Atrial premature complex(es) no longer present ST (T wave) deviation no longer present Electronically Signed On 08-22-2018 10:23:22 HEAD KNITTING MACHINE FIXER by Allen Chong [email or web address] <ELECTRONICALLY SIGNED> By: Allen Chong MD, FACC 08/22/18 1023 1447 1447 Allen Chong MD, FAC /EPI
--- NOTE | 2018-08-22 10:24 | EKG ---
[place] [address] ELECTROCARDIOGRAM REPORT Name: ELIZABETH LOPEZ Room: [facility]#: [id number] Admission: 08/21/18 Attend Phys: Discharge: 08/21/18 Date of : 38 Report #: [id number] THIS REPORT FOR: //name// [facility] ED Test Date: 2018-08-21 Test Time: 16:58:40 Pat Name: ELIZABETH LOPEZ Department: Room: Gender: F Windows Administrator: Ralph NICHOLE : 1940 Requested By: Swapnil Kahn Order Number: [id number] MD: Allen Chong Measurements Intervals [place] Rate: 62 P: 47 GA: 181 QRS: -36 QRSD: 98 T: 88 QT: 452 QTc: 459 Interpretive Statements Sinus rhythm Left axis deviation Compared to ECG 07/01/2018 10:18:42 Atrial premature complex(es) no longer present ST (T wave) deviation no longer present Electronically Signed On 08-22-2018 10:24:23 SLICING MACHINE TENDER by Allen Chong [email or web address] <ELECTRONICALLY SIGNED> By: Allen Chong MD, [facility] 08/22/18 1024 1658 1658 Allen Chong MD, [facility] /EPI
== END 2018-08-21 18:10 | disposition home or self-care (01) ==
LOC: M.ERS 14:42
PROVIDERS: Emergency Medicine Emergency Medical Services
DX: R00.2 Palpitations (principal); M25.511 Pain in right shoulder; K76.0 Fatty (change of) liver, not elsewhere classified; Z86.73 Personal history of transient ischemic attack (TIA), and cerebral infarction without residual deficits; Z88.8 Allergy status to other drugs, medicaments and biological substances

== ENCOUNTER → 2018-09-16 | Outpatient (CLI) | payer MEDICARE ==
[~2018-09-16] MED LIST changes: +COLACE100 MG PO
--- NOTE | ~2018-09-16 | HEMONC ---
[place] [address] HEMATOLOGY ONCOLOGY NOTE Name: ELIZABETH LOPEZ Room: [facility]#: [id number] Admission: 09/16/18 Attend Phys: Luis Ye MD Discharge: Date of : 38 Report #: [id number] THIS REPORT FOR: //name// CC: Kenny Hargrove DO Luis ROCHE DATE OF SERVICE: 09/16/2018 REASON FOR CONSULTATION: Abnormal immunofixation. SUBJECTIVE: This is a 78-year-old female was diagnosed with a CVA at the hospital in July, she had still dysarthria and had no residual weakness. The patient had a workup for neuropathy as an outpatient. She had an immunofixation, which showed IgG monoclonal protein with lambda light chain. The patient denies any major fatigue. She had a chronic back pain. She denies any frequent infections. REVIEW OF SYSTEMS: All systems were reviewed, which were negative except the above. PAST MEDICAL HISTORY: Osteoarthritis, diabetes mellitus type 2, hypertension, hypothyroidism, recent CVA. PAST SURGICAL HISTORY: Appendectomy, TURBT, hysterectomy, colon surgery, knee replacement right. FAMILY HISTORY: Positive for diabetes mellitus, hypertension. SOCIAL HISTORY: She is a former smoker. No alcohol or drug abuse. ALLERGIES: She is allergic to METFORMIN, STATINS, and BENICAR. MEDICATIONS: Current medications are cholestyramine 4 grams 1 p.o. daily, Cardizem 250 mg p.o. daily, glipizide 5 mg p.o. daily, levothyroxine 150 mcg p.o. daily, losartan/hydrochlorothiazide 100/25 mg p.o. daily, potassium K-Dur 10 mEq p.o. daily. PHYSICAL EXAMINATION: VITAL SIGNS TODAY: Blood pressure is 144/79, pulse is 83, respirations 24, temperature is 96.6, saturations 98% on room air. GENERAL: The patient was sitting in chair, was not in acute distress. LUNGS: Clear to auscultations bilaterally. HEART: Regular rate and rhythm. S1, S2 within normal limits. ABDOMEN: Soft, nontender, nondistended, bowel [place] [address] HEMATOLOGY ONCOLOGY NOTE Name: ELIZABETH LOPEZ Room: [facility]#: [id number] Admission: 09/16/18 Attend Phys: Luis Ye MD Discharge: Date of : 38 Report #: [id number] LABORATORY DATA: Most recent labs on 08/21/2018, WBC 11.3, hemoglobin 13.9, platelets 320. Creatinine is 0.9, calcium is 9.2, total protein is 7.4. B12 815. As mentioned above, immunofixation showed IgG lambda. ASSESSMENT AND PLAN: A 78-year-old female who has been evaluated with immunofixation, showed IgG lambda. The patient does not have any anemia, thrombocytopenia, hypercalcemia or renal failure. 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 I would like to obtain serum electrophoresis and free light chain with skeletal survey. Most likely, we will continue observation. By: [id number] Ye MD /nt
[2018-09-16 12:32] LABS: ABSOLUTE BASOPHILS 0.1 thou/uL (0.0-0.2); ABSOLUTE EOSINOPHILS 0.1 thou/uL (0.0-0.7); ABSOLUTE LYMPHOCYTES 2.1 thou/uL (0.8-5.3); ABSOLUTE MONOCYTES 0.6 thou/uL (0.0-1.2); ABSOLUTE NEUTROPHILS 5.7 thou/uL (1.6-8.1); BASOPHILS 1.1 %; EOSINOPHILS 1.6 %; HEMATOCRIT 41.8 % (37.0-47.0); HEMOGLOBIN 14.1 gm/dL (12.0-15.0); LYMPHOCYTES 23.9 %; MCH 30.2 pg (26.0-34.0); MCHC 33.8 g/dL (28.0-37.0); MCV 89.4 fL (80.0-100.0); MONOCYTES 6.8 %; MPV 8.4 fl. (7.2-11.1); NUCLEATED RBCS 0 /100WBC; PLATELET COUNT* 312 thou/uL (150-400); POLYS 66.6 %; RBC 4.68 mil/uL (4.20-5.00); RDW-CV 13.8 % (10.5-14.5); WBC 8.6 thou/uL (4.0-11.0)
[2018-09-16 12:50] LABS: ALBUMIN 3.5 g/dL (3.4-5.0); CALCIUM 9.5 mg/dL (8.5-10.1); CREATININE 0.8 mg/dL (0.6-1.3); POTASSIUM 3.5 mmol/L (3.5-5.1); TOTAL BILIRUBIN 0.3 mg/dL (<0.1-1.0); TOTAL PROTEIN 7.8 g/dL (6.4-8.2)
[2018-09-16 21:09] LABS: IgA 372 mg/dL (64-422); IgG 927 mg/dL (700-1600); IgM 48 mg/dL (26-217)
[2018-09-17 15:06] LABS: KAPPA FREE LIGHT CHAINS 13.2 mg/L (3.3-19.4); LAMBDA FREE LIGHT CHAINS 10.8 mg/L (5.7-26.3)
[2018-09-18 17:08] LABS: GLOBULIN TOTAL 3.5 g/dL (2.2-3.9); M-SPIKE 0.2 g/dL (Not Observed)
== END ==
LOC: M.RTH 04:01
PROVIDERS: Internal Medicine
DX: D47.2 Monoclonal gammopathy (principal)

== ENCOUNTER → 2018-09-18 | Outpatient (CLI) | payer MEDICARE | LOC: M.RAD 13:20 | DX: M47.893 Other spondylosis, cervicothoracic region (principal); M47.896 Other spondylosis, lumbar region; D47.2 Monoclonal gammopathy; M25.78 Osteophyte, vertebrae ==

== ENCOUNTER → 2018-10-21 | Outpatient (CLI) | payer MEDICARE | LOC: M.RAD 12:22 | DX: J98.4 Other disorders of lung (principal); I70.0 Atherosclerosis of aorta ==

== ENCOUNTER → 2018-12-16 | Outpatient (CLI) | payer MEDICARE ==
--- NOTE | 2018-12-17 13:01 | HEMONC ---
[address] [address] HEMATOLOGY ONCOLOGY NOTE Name: JESSICAELIZABETH Room: [facility]#: [id number] Admission: 12/16/18 Attend Phys: Luis Ye MD Discharge: Date of : 38 Report #: [id number] THIS REPORT FOR: //name// CC: Kenny Hargrove DO Dr. Grant Ye DATE OF SERVICE: 12/16/2018 DIAGNOSIS: Monoclonal gammopathy of undetermined significance. SUBJECTIVE: The patient presented today as a 3-month followup. I reviewed her most recent labs, which showed monoclonal protein with IgG lambda measuring 0.2 g/dL. Otherwise, the patient had a normal CBC. Her creatinine was within normal range. Calcium within normal range. Skeletal survey has been reviewed, which was consistent with degenerative disease. No evidence of lytic lesions. The patient continues to be asymptomatic at this point. REVIEW OF SYSTEMS: All systems were reviewed and it was negative except the above. PAST MEDICAL, SOCIAL AND FAMILY HISTORY: Unchanged from previous visits. PHYSICAL EXAMINATION: VITAL SIGNS: Today, blood pressure is 120/75, pulse 80, respirations 20, temperature is 97.6, saturation is 98% on room air. GENERAL: The patient was sitting in chair, was not in acute distress. LUNGS: Clear to auscultation bilaterally. HEART: Regular rate and rhythm. S1, S2 within normal limits. ABDOMEN: Soft, nontender, nondistended. Bowel sounds positive. ASSESSMENT AND PLAN: A 78-year-old female was evaluated because of abnormal immunofixation, IgG lambda, M-spike measuring 0.2 g. No evidence of end-organ damage. No anemia, thrombocytopenia, hypercalcemia and renal failure. No lytic lesions. At this point, I do recommend monitoring the patient; however, the patient and her wanted a 1-year followup. Serum electrophoresis can be checked to evaluate her M-spike in 6 months per primary care physician. <ELECTRONICALLY SIGNED> By: Luis Ye MD 12/17/18 1301 1103 2059Luis Ye MD /nt
== END ==
LOC: M.RTH 07:10
DX: D47.2 Monoclonal gammopathy (principal)

== ENCOUNTER → 2019-02-18 | Outpatient (CLI) | payer MEDICARE | LOC: M.CT 11:00 | DX: I67.82 Cerebral ischemia (principal); G31.9 Degenerative disease of nervous system, unspecified ==

== ENCOUNTER 2019-06-24 10:50 | Inpatient (IN) | payer MEDICARE ==
[~2019-06-24] VITALS: Ht 167.6 cm; Wt 94.8 kg
[2019-06-24 10:51] VITALS: BP 121/66
[2019-06-24 11:24] LABS: ABSOLUTE BASOPHILS 0.1 thou/uL (0.0-0.2); ABSOLUTE EOSINOPHILS 0.1 thou/uL (0.0-0.7); ABSOLUTE LYMPHOCYTES 1.7 thou/uL (0.8-5.3); ABSOLUTE MONOCYTES 0.8 thou/uL (0.0-1.2); ABSOLUTE NEUTROPHILS 7.3 thou/uL (1.6-8.1); BASOPHILS 0.9 %; EOSINOPHILS 1.2 %; HEMATOCRIT 41.8 % (37.0-47.0); LYMPHOCYTES 16.7 %; MCH 31.1 pg (26.0-34.0); MCHC 33.5 g/dL (28.0-37.0); MCV 92.6 fL (80.0-100.0); MPV 8.9 fl. (7.2-11.1); NUCLEATED RBCS 0 /100WBC; PLATELET COUNT* 269 thou/uL (150-400); POLYS 73.2 %; RBC 4.51 mil/uL (4.20-5.00)
[2019-06-24 11:31] LABS: URINE BILIRUBIN NEGATIVE (Negative); URINE BLOOD NEGATIVE (Negative); URINE CLARITY CLEAR; URINE COLOR YELLOW; URINE GLUCOSE-RANDOM NEGATIVE (Negative); URINE KETONES NEGATIVE (Negative); URINE LEUKOCYTES-REFLEX NEGATIVE (Negative); URINE NITRITE-REFLEX NEGATIVE (Negative); URINE PROTEIN 2+ (Negative); URINE UROBILINOGEN 0.2 E.U./dl (0.2-1.0)
[2019-06-24 11:34] LABS: CALCIUM 9.5 mg/dL (8.5-10.1); CREATININE 0.9 mg/dL (0.6-1.3); POTASSIUM 3.5 mmol/L (3.5-5.1)
[2019-06-24 11:38] LABS: ALBUMIN 3.7 g/dL (3.4-5.0); TOTAL BILIRUBIN 0.4 mg/dL (<0.1-1.0); TOTAL PROTEIN 7.9 g/dL (6.4-8.2)
[2019-06-24 13:47] VITALS: BP 123/61
[2019-06-24 14:38] VITALS: BP 114/64
--- NOTE | 2019-06-24 15:48 | EKG ---
[place] [address] ELECTROCARDIOGRAM REPORT Name: ELIZABETH LOPEZ Room: [address] ADM IN M.R.#: [id number] Admission: 06/24/19 Attend Phys: Peña Blake MD Discharge: Date of : 38 Report #: [id number] THIS REPORT FOR: //name// [facility] ED Test Date: 2019-06-24 Test Time: 11:26:32 Pat Name: ELIZABETH LOPEZ Department: Room: [facility] Gender: F Echocardiograph Tech: : 1940 Requested By: Dangelo Castorena Order Number: [id number] : Allen Chong Measurements Intervals [place] Rate: 72 P: 36 IN: 194 QRS: -35 QRSD: 106 T: 83 QT: 465 QTc: 509 Interpretive Statements Sinus rhythm Left axis deviation Prolonged QT interval Compared to ECG 08/21/2018 16:58:40 Prolonged QT interval persists Electronically Signed On 06-24-2019 15:47:42 FINISHER POLISHER by Allen Chong [email or web address] <ELECTRONICALLY SIGNED> By: Allen Chong MD, FAC 06/24/19 1547 1126 1126 Allen Chong MD, [facility] /EPI
--- NOTE | 2019-06-24 16:23 | NUR ---
PT ADMITTED TO ROOM 304 AROUND 1440. REFER TO ASSESSMENT. PT HAS NO C/O PAIN AT TIME OF ADMISSION. PT HAS HAD ONE STOOL SINCE ADMISSION THAT WAS LOOSE. CT HEAD AND ECHO COMPLETED. AT BEDSIDE DURING ADMISSION. NO OTHER CONCERNS AT THIS TIME. CLWR. WCTM.
[2019-06-24 19:20] VITALS: BP 136/62
[2019-06-25 03:56] LABS: ABSOLUTE BASOPHILS 0.1 thou/uL (0.0-0.2); ABSOLUTE EOSINOPHILS 0.1 thou/uL (0.0-0.7); ABSOLUTE LYMPHOCYTES 2.7 thou/uL (0.8-5.3); ABSOLUTE NEUTROPHILS 6.6 thou/uL (1.6-8.1); BASOPHILS 0.7 %; EOSINOPHILS 0.8 %; HEMATOCRIT 37.1 % (37.0-47.0); HEMOGLOBIN 12.2 gm/dL (12.0-15.0); LYMPHOCYTES 25.8 %; MCH 30.6 pg (26.0-34.0); MCV 92.8 fL (80.0-100.0); MONOCYTES 9.5 %; NUCLEATED RBCS 0 /100WBC; PLATELET COUNT* 262 thou/uL (150-400); POLYS 63.2 %; RDW-CV 13.9 % (10.5-14.5); WBC 10.5 thou/uL (4.0-11.0)
[2019-06-25 04:16] LABS: CALCIUM 8.8 mg/dL (8.5-10.1); CREATININE 0.7 mg/dL (0.6-1.3); POTASSIUM 3.4 mmol/L (3.5-5.1)
[2019-06-25 08:15] VITALS: BP 118/60
--- NOTE | 2019-06-25 08:41 | 2DMMODE ---
[place] [address] 2 D/M-MODE ECHOCARDIOGRAM Name: ELIZABETH LOPEZ Room: [address] IN [facility]#: [id number] Admission: 06/24/19 Attend Phys: Peña Blake, Discharge: Date of : 38 Date of Service: 06/25/19 0841 Report #: [id number] THIS REPORT FOR: //name// APPROVED REPORT Study performed: 06/24/2019 15:09:58 EXAM: Comprehensive 2D, Doppler, and color-flow Echocardiogram Patient Location: In-Patient Room #: [facility] Status: routine BSA: 2.04 HR: 68 bpm BP: 123/61 mmHg Rhythm: NSR Other Information Study Quality: Good Indications Syncope 2D Dimensions IVSd: 17.69 (7-11mm) LVOT Diam: 22.59 (18-24mm) LVDd: 47.02 mm PWd: 13.18 (7-11mm) Ascending Ao: 30.56 (22-36mm) LVDs: 28.38 (25-40mm) Aortic Root: 33.26 mm Volumes Left Atrial Volume (Systole) LA ESV Index: 72.80 mL/m2 Aortic Valve AoV Peak Javad.: 4.41 m/s AO Peak Gr.: 77.66 mmHg LVOT Max P.18 mmHg AO Mean Gr.: 49.25 mmHg LVOT Mean P.47 mmHg LVOT Max V: 0.89 m/s AO V2 VTI: 108.33 cm LVOT Mean V: 0.55 m/s CARYN (VTI): 0.79 cm2 LVOT V1 VTI: 21.26 cm Mitral Valve MV Mean Gr.: 4.95 mmHg E/A Ratio: 1.11 MV Decel. Time: 344.28 ms MV E Max Javad.: 1.49 m/[place] [address] 2 D/M-MODE ECHOCARDIOGRAM Name: ELIZABETH LOPEZ Room: [address] IN [facility]#: [id number] Admission: 06/24/19 Attend Phys: Peña Blake, Discharge: Date of : 38 Date of Service: 06/25/19 0841 Report #: [id number] MV PHT: 99.84 ms MVA (PHT): 2.20 cm2 TDI E/Lateral E': 24.83 E/Medial E': 24.83 Medial E' Javad.: 0.06 m/s Lateral E' Javad.: 0.06 m/s Pulmonary Valve PV Peak Javad.: 1.16 m/s PV Peak Gr.: 5.39 mmHg Tricuspid Valve RAP Estimate: 5.00 mmHg TR Peak Gr.: 37.05 mmHg RVSP: 42.00 mmHg PA Pressure: 42.00 mmHg Left Ventricle The left ventricle is normal size. There is normal LV segmental wall motion. Moderate concentric left ventricular hypertrophy. Left ventricular systolic function is normal. LVEF is 55-60%. Transmitral Doppler flow pattern suggests restrictive physiology. Right Ventricle The right ventricle is normal size. The right ventricular systolic function is normal. Atria Left atrium is severely dilated. The right atrium size is normal. Aortic Valve Severe aortic valve sclerosis. No aortic regurgitation is present. Severe aortic stenosis. Mitral Valve Severe mitral annular calcification. Moderate mitral regurgitation. Mild mitral stenosis. Tricuspid Valve The tricuspid valve is normal in structure. Mild tricuspid regurgitation. The RVSP is 40-45 mmHg. Pulmonic Valve The pulmonary valve is normal in structure. Mild pulmonic [place] [address] 2 D/M-MODE ECHOCARDIOGRAM Name: ELIZABETH LOPEZ Room: [address]#: [id number] Admission: 06/24/19 Attend Phys: Peña Blake, Discharge: Date of : 38 Date of Service: 06/25/19 0841 Report #: [id number] Great Vessels The aortic root is normal in size. IVC is normal in size and collapses >50% with inspiration. Pericardium There is no pericardial effusion. <Conclusion> The left ventricle is normal size. Moderate concentric left ventricular hypertrophy. Left ventricular systolic function is normal. LVEF is 55-60%. Transmitral Doppler flow pattern suggests restrictive physiology. Left atrium is severely dilated. Severe aortic valve sclerosis. Severe aortic stenosis. Severe mitral annular calcification. Moderate mitral regurgitation. Mild mitral stenosis. Mild tricuspid regurgitation. The RVSP is 40-45 mmHg. IVC is normal in size and collapses >50% with inspiration. <ELECTRONICALLY SIGNED> By: Carlos De La O MD, FACC 06/25/19840 0 0 Carlos De La O MD, FACC /INF
--- NOTE | 2019-06-25 12:28 | NUR ---
SW completed initial assessment, pt known to SW from pt previous admission and stay on [facility] inpt rehab unit. Pt lives at home with and has supportive dtr as well. Pt has RW, cane, and was working on getting a wc. Pt has hx with OP therapy at [facility]. SW to continue to follow to assist with safe dc planning.
--- NOTE | 2019-06-25 15:29 | CON ---
[address] [address] CONSULTATION Name: ELIZABETH LOPEZ Room: [address] IN M.R.#: [id number] Admission: 06/24/19 Attend Phys: Peña Blake MD Discharge: Date of : 38 Report #: [id number] THIS REPORT FOR: //name// CC: Peña Hargrove DO DICTATED BY: Jazmyn Weiss [facility] DATE OF SERVICE: 06/25/2019 Please note at the time of this dictation, the patient was seen and physically examined by myself. REASON FOR CONSULTATION: Abdominal pain and some diarrhea. HISTORY OF PRESENT ILLNESS: This is an 79-year-old female who lives at home with her who started having complaints of some left lower abdominal pain, slight nausea in the morning of admission. The patient states that prior to the onset of her pain, a little bit of nausea and the diarrhea, she had been constipated for a couple of days. Normally her bowels, she states does not move, but every 2-3 days and if she has not had a bowel movement, she will likely take the milk of magnesia that helps facilitate that. She has not done so with all of this. She is no longer having any nausea or vomiting since being admitted and she is feeling hungry. She still does have a little bit of lower abdominal discomfort. Denies any fever or chills at this time. The patient did undergo an EGD and colonoscopy back [place] [address] Mitchell, which showed normal upper endoscopy and lower showed sigmoid diverticulosis, otherwise was essentially negative. ALLERGIES: STATINS, METFORMIN. MEDICATIONS: From home include glipizide, vitamin D, Lasix, Synthroid, potassium, Cardizem, aspirin, Colace, Zetia, Cozaar. PAST MEDICAL HISTORY: History of diabetes, heart disease, and hypertension. She does have some beginnings of dementia and history of stroke in the past. PAST SURGICAL HISTORY: Cholecystectomy. FAMILY HISTORY: Negative for any GI or female cancers. SOCIAL HISTORY: She lives with her . Denies any alcohol, tobacco or illegal drug use. REVIEW OF SYSTEMS: Twelve-point review [place] [address] CONSULTATION Name: ELIZABETH LOPEZ Room: [address]#: [id number] Admission: 06/24/19 Attend Phys: Peña Blake MD Discharge: Date of : 39 Report #: [id number] except to what is mentioned in the HPI. PHYSICAL EXAMINATION: VITAL SIGNS: Temperature 36.6, pulse 65, respirations 17, blood pressure 118/60. HEART: Regular rate and rhythm. LUNGS: Diminished, but clear. ABDOMEN: Soft, positive bowel sounds in all 4 quadrants with some left-sided tenderness noted to palpation. LABORATORY DATA: Hemoglobin on admission was 14 and she is down to 12.12. White count is 10.5, platelets 262. GFR is 81. LFTs are completely normal. CT showed some thickening in the sigmoid area, very mild. IMPRESSION: 1. Abdominal pain. 2. Some diarrhea. 3. Bright red blood noted. 4. Anticoagulant therapy, Plavix. PLAN: 1. Advance diet to a soft low residue. 2. Continue her antibiotics, Cipro and Flagyl. 3. We will perform an outpatient colonoscopy in 6-8 weeks to better evaluate her colon. 4. The patient to be on a better bowel regimen at home with Colace or senna once or twice a day. Thank you for allowing us to participate in this patient's care. Please do not hesitate to call with any questions in regard to this consult. I agree with the above assessment and plan as outlined by Jazmyn Weiss <ELECTRONICALLY SIGNED> By: Wesley Sapp MD 06/25/19 1529 1127 [id number] Sapp MD /nt
--- NOTE | 2019-06-25 17:18 | NUR ---
PT A&OX4 VSS. PT USES CALL LIGHT APPROPRIATELY AND REQUESTS ASSIST TO RESTROOM. PT REMAINS CONTINENT OF B/B. PT REMAINS ON ISOLATION PRECAUTIONS WAITING FOR RESULTS OF STOOL CULTURE. PT DIET ADVANCWED TO HEART HEALTHY ORDERED BY PHYSICIAN. LAC IV PATENT, NO REDNESS/SWELLING NOTED AT SITE. NS RUNNING AT 100ML/HR DIRECTED. PT RESTS IN ROOM WITH CALL LIGHT IN REACH. DENIES PAIN/DISCOMFORT AT THIS TIME. WILL CONTINUE TO MONITOR.
[2019-06-25 20:30] VITALS: BP 109/56
[2019-06-26 03:35] LABS: ABSOLUTE BASOPHILS 0.1 thou/uL (0.0-0.2); ABSOLUTE EOSINOPHILS 0.3 thou/uL (0.0-0.7); ABSOLUTE LYMPHOCYTES 2.4 thou/uL (0.8-5.3); ABSOLUTE MONOCYTES 1.1 thou/uL (0.0-1.2); ABSOLUTE NEUTROPHILS 5.4 thou/uL (1.6-8.1); BASOPHILS 0.9 %; HEMATOCRIT 32.6 % (37.0-47.0); LYMPHOCYTES 25.9 %; MCH 31.1 pg (26.0-34.0); MCHC 33.8 g/dL (28.0-37.0); MCV 92.1 fL (80.0-100.0); MONOCYTES 12.1 %; MPV 8.8 fl. (7.2-11.1); NUCLEATED RBCS 0 /100WBC; PLATELET COUNT* 217 thou/uL (150-400); POLYS 58.1 %; RBC 3.54 mil/uL (4.20-5.00); RDW-CV 13.7 % (10.5-14.5); WBC 9.3 thou/uL (4.0-11.0)
[2019-06-26 03:49] LABS: ALBUMIN 2.7 g/dL (3.4-5.0); CALCIUM 8.5 mg/dL (8.5-10.1); CREATININE 0.8 mg/dL (0.6-1.3); POTASSIUM 3.5 mmol/L (3.5-5.1); TOTAL BILIRUBIN 0.2 mg/dL (<0.1-1.0); TOTAL PROTEIN 5.8 g/dL (6.4-8.2)
--- NOTE | 2019-06-26 05:45 | NUR ---
PATIENT SLEPT MOST OF THE NIGHT. IV FLUIDS AND ANTIBIOTICS WERE GIVEN ORDERED. PATIENT HAS HAD NO STOOLS THIS SHIFT. CDIFF CAME BACK NEGATIVE FROM THE LAB, ISOLATION WAS DISCONTINUED. PATIENT HAD NO COMPLAINTS OF PAIN. WILL CONTINUE TO MONITOR.
[2019-06-26 07:35] VITALS: BP 129/62
[2019-06-26] MEDS ORDERED: FLAGYL500 M1 PO (11:25)
[2019-06-26] MEDS ORDERED: CIPRO500 M1 PO (11:29)
[2019-06-26 11:49] VITALS: BP 129/62
--- NOTE | 2019-06-26 12:45 | NUR ---
PT A&OX4 VSS. PT UP SBA X1, GAIT STEADY. PT EATING LUNCH PRIOR TO LEAVING UNIT. PT AND STATE UNDERSTANDING OF DC INFORMATION AND RX PROVIDED. TOBACCO ACREAGE MEASURER/UPSETTER HELPER EDUCATED SPOUSE REGARDING PT DIET ADJUSTMENTS. PT IV DC'D, NO REDNESS/SWELLING/ACTIVE BLEEDING AT SITE. COBAN AND COTTON APPLIED TO SITE. PT DRESSED W/ ASSIST FROM . PT LEFT UNIT WITH ALL PERSONAL BELONGINGS. PT TRANSPORTED BY WITH NURSING STAFF TO FRONT DOOR AND ASSISTED TO PERSONAL VEHICLE.
[2019-06-27] MEDS ORDERED: PHENERGAN 25 MG25 M1 PO (08:42)
[2019-06-27] MEDS ORDERED: ZOFRAN ODT4 MG DISSOLVE (08:42)
== END 2019-06-26 13:00 | disposition home or self-care (01) | DRG 378 ==
LOC: M.ERS 10:50 → M.3W 12:57 → M.TBA-ER 12:57 → M.3W 14:20
PROVIDERS: Family Medicine; ADMIT Internal Medicine
DX: K57.33 Diverticulitis of large intestine without perforation or abscess with bleeding (principal); E44.0 Moderate protein-calorie malnutrition; E11.9 Type 2 diabetes mellitus without complications; F03.90 Unspecified dementia, unspecified severity, without behavioral disturbance, psychotic disturbance, mood disturbance, and anxiety; Z90.49 Acquired absence of other specified parts of digestive tract; Z86.73 Personal history of transient ischemic attack (TIA), and cerebral infarction without residual deficits; Z88.8 Allergy status to other drugs, medicaments and biological substances; Z79.01 Long term (current) use of anticoagulants; Z82.49 Family history of ischemic heart disease and other diseases of the circulatory system; Z79.82 Long term (current) use of aspirin; Z79.899 Other long term (current) drug therapy; Z68.33 Body mass index [BMI] 33.0-33.9, adult

== ENCOUNTER 2019-06-27 06:44 | Emergency (ER) | payer MEDICARE ==
[~2019-06-27] VITALS: Ht 170.2 cm; Wt 98.9 kg
[~2019-06-27 06:44] MED LIST changes: +CIPRO500 M1 PO; +FLAGYL500 M1 PO
[2019-06-27 07:37] LABS: HEMATOCRIT 39.4 % (37.0-47.0); HEMOGLOBIN 13.1 gm/dL (12.0-15.0); MCH 30.7 pg (26.0-34.0); MCHC 33.3 g/dL (28.0-37.0); MCV 92.2 fL (80.0-100.0); MPV 9.3 fl. (7.2-11.1); NUCLEATED RBCS 0 /100WBC; PLATELET COUNT* 245 thou/uL (150-400); RBC 4.27 mil/uL (4.20-5.00)
[2019-06-27 07:48] LABS: CALCIUM 8.6 mg/dL (8.5-10.1); CREATININE 0.7 mg/dL (0.6-1.3); POTASSIUM 3.4 mmol/L (3.5-5.1)
[2019-06-27 07:52] LABS: ALBUMIN 3.4 g/dL (3.4-5.0); TOTAL BILIRUBIN 0.5 mg/dL (<0.1-1.0); TOTAL PROTEIN 7.2 g/dL (6.4-8.2)
[2019-06-27 08:33] LABS: ABSOLUTE LYMPHOCYTES 1.3 thou/uL (0.8-5.3); ABSOLUTE MONOCYTES 0.1 thou/uL (0.0-1.2); ABSOLUTE NEUTROPHILS 12.6 thou/uL (1.6-8.1); PLATELET ESTIMATE ADEQUATE
[2019-06-27] MEDS ORDERED: PHENERGAN 25 MG25 M1 PO (08:42)
[2019-06-27] MEDS ORDERED: ZOFRAN ODT4 MG DISSOLVE (08:42)
[2019-06-27 09:00] VITALS: BP 127/59
--- NOTE | 2019-06-29 11:24 | EKG ---
[place] [address] ELECTROCARDIOGRAM REPORT Name: ELIZABETH LOPEZ Room: [facility]#: [id number] Admission: 06/27/19 Attend Phys: Discharge: 06/27/19 Date of : 39 Report #: [id number] THIS REPORT FOR: //name// [facility] ED Test Date: 2019-06-27 Test Time: 07:31:59 Pat Name: ELIZABETH LOPEZ Department: Room: Gender: F On Site Construction Superintendent: : 1940 Requested By: Swapnil Kahn Order Number: [id number] MD: Frantz Mullins Measurements Intervals [place] Rate: 85 P: 47 CA: 166 QRS: -36 QRSD: 94 T: 61 QT: 420 QTc: 500 Interpretive Statements Sinus rhythm Left axis deviation Minimal ST depression, lateral leads Borderline prolonged QT interval Compared to ECG 06/24/2019 11:26:32 ST (T wave) deviation now present Electronically Signed On 06-29-2019 11:24:18 MECHANICAL ENGINEERING TECHNOLOGIST by Frantz Mullins [email or web address] <ELECTRONICALLY SIGNED> By: Frantz Mullins MD, [facility] 06/29/19 1124 0 Frantz Mullins MD, [facility] /EPI
== END 2019-06-27 09:01 | disposition home or self-care (01) ==
LOC: M.ERS 06:44
PROVIDERS: Emergency Medicine Emergency Medical Services
DX: R11.2 Nausea with vomiting, unspecified (principal); Z86.73 Personal history of transient ischemic attack (TIA), and cerebral infarction without residual deficits; Z90.49 Acquired absence of other specified parts of digestive tract; Z88.8 Allergy status to other drugs, medicaments and biological substances

== ENCOUNTER 2019-06-30 04:55 | Inpatient (IN) | payer MEDICARE ==
[~2019-06-30] VITALS: Ht 167.6 cm; Wt 94.3 kg
--- NOTE | ~2019-06-30 | PROC ---
[address] [address] PROCEDURE REPORT Name: ELIZABETH LOPEZ Room: [address] IN M.R.#: [id number] Admission: 06/30/19 Attend Phys: Charles rausch [place] Discharge: 07/04/19 Date of : 39 Report #: [id number] THIS REPORT FOR: //name// For GI report, please see the Provation report in Perceptive 7 content. By: 0641Medical Records Staff SHIRA /IRVING
--- NOTE | ~2019-06-30 | EKG ---
[place] [address] ELECTROCARDIOGRAM REPORT Name: ELIZABETH LOPEZ Room: [place] [address] ADM IN M.R.#: [id number] Admission: 06/30/19 Attend Phys: Charles Au Discharge: Date of : 39 Report #: [id number] THIS REPORT FOR: //name// [facility] ED Test Date: 2019-06-30 Test Time: 05:03:31 Pat Name: ELIZABETH LOPEZ Department: Room: [facility] Gender: F Chrome Tanner: PAULA : 1940 Requested By: Gabby Bowden Order Number: [id number] MD: Measurements Intervals [place] Rate: 85 P: 65 [place]: 48 QRS: -37 QRSD: 101 T: 78 QT: 425 QTc: 506 Interpretive Statements Sinus rhythm Short [place] interval Probable left atrial enlargement Left axis deviation Prolonged QT interval Compared to ECG 06/27/2019 07:31:59 Short [place] interval now present ST (T wave) deviation no longer present [email or web address] By: 0503 0503 [place], [place] /EPI
--- NOTE | ~2019-06-30 | PROC ---
[address] [address] PROCEDURE REPORT Name: ELIZABETH LOPEZ Room: [address] IN M.R.#: [id number] Admission: 06/30/19 Attend Phys: Charles Geigero Discharge: 07/04/19 Date of : 39 Report #: [id number] THIS REPORT FOR: //name// For GI report, please see the Provation report in Perceptive 7 content. By: 0644Medical Records Staff SHIRA /IRVING
[~2019-06-30 04:55] MED LIST changes: +PHENERGAN 25 MG25 M1 PO; +ZOFRAN ODT4 MG DISSOLVE
[2019-06-30 04:57] VITALS: BP 149/88
[2019-06-30] MEDS ORDERED: ZETIA10 MG PO (05:11)
[2019-06-30] MEDS ORDERED: ELIQUIS5 MG PO (05:12)
[2019-06-30 05:21] LABS: ABSOLUTE BASOPHILS 0.1 thou/uL (0.0-0.2); ABSOLUTE EOSINOPHILS 0.1 thou/uL (0.0-0.7); ABSOLUTE LYMPHOCYTES 1.2 thou/uL (0.8-5.3); ABSOLUTE MONOCYTES 1.3 thou/uL (0.0-1.2); ABSOLUTE NEUTROPHILS 7.4 thou/uL (1.6-8.1); BASOPHILS 1.2 %; EOSINOPHILS 0.8 %; HEMATOCRIT 36.2 % (37.0-47.0); HEMOGLOBIN 12.2 gm/dL (12.0-15.0); LYMPHOCYTES 12.2 %; MCH 30.9 pg (26.0-34.0); MCHC 33.7 g/dL (28.0-37.0); MCV 91.7 fL (80.0-100.0); MPV 9.4 fl. (7.2-11.1); NUCLEATED RBCS 0 /100WBC; PLATELET COUNT* 231 thou/uL (150-400); POLYS 72.8 %; RBC 3.94 mil/uL (4.20-5.00); RDW-CV 14.1 % (10.5-14.5); WBC 10.2 thou/uL (4.0-11.0)
[2019-06-30 05:30] LABS: URINE BILIRUBIN NEGATIVE (Negative); URINE BLOOD NEGATIVE (Negative); URINE CLARITY CLEAR; URINE COLOR YELLOW; URINE GLUCOSE-RANDOM NEGATIVE (Negative); URINE KETONES TRACE (Negative); URINE LEUKOCYTES-REFLEX TRACE (Negative); URINE NITRITE-REFLEX NEGATIVE (Negative); URINE PROTEIN TRACE (Negative); URINE SPECIFIC GRAVITY >= 1.030 (1.005-1.030); URINE UROBILINOGEN 0.2 E.U./dl (0.2-1.0)
[2019-06-30 05:40] LABS: INR 1.1; PROTIME 11.2 Seconds (9.20-11.50)
[2019-06-30 05:47] LABS: CALCIUM 8.3 mg/dL (8.5-10.1); CREATININE 0.8 mg/dL (0.6-1.3)
[2019-06-30 05:50] LABS: SQUAMOUS 0-3 Few /LPF (0-3)
[2019-06-30 05:51] LABS: BACTERIA-REFLEX 1-9 Few /HPF (None Seen); CASTS None Seen /LPF (None Seen); CRYSTALS None Seen /LPF (None Seen); MUCUS 4-6 Moderate strn/LPF (None Seen); URINE RBC 0-2 Rare /HPF (0-2); URINE WBC-REFLEX 0-5 Rare /HPF (0-5)
[2019-06-30 05:52] LABS: ALBUMIN 3.3 g/dL (3.4-5.0); TOTAL BILIRUBIN 0.4 mg/dL (<0.1-1.0); TOTAL PROTEIN 7.1 g/dL (6.4-8.2)
[2019-06-30 05:55] LABS: POTASSIUM 2.8 mmol/L (3.5-5.1)
[2019-06-30 08:52] VITALS: BP 116/68
[2019-06-30 09:57] LABS: ABSOLUTE EOSINOPHILS 0.1 thou/uL (0.0-0.7); ABSOLUTE LYMPHOCYTES 1.5 thou/uL (0.8-5.3); ABSOLUTE NEUTROPHILS 5.9 thou/uL (1.6-8.1); BASOPHILS 0.4 %; EOSINOPHILS 0.9 %; HEMATOCRIT 34.9 % (37.0-47.0); HEMOGLOBIN 11.8 gm/dL (12.0-15.0); LYMPHOCYTES 17.5 %; MCHC 33.9 g/dL (28.0-37.0); MCV 91.4 fL (80.0-100.0); MONOCYTES 12.2 %; MPV 9.4 fl. (7.2-11.1); NUCLEATED RBCS 0 /100WBC; PLATELET COUNT* 210 thou/uL (150-400); RBC 3.82 mil/uL (4.20-5.00); WBC 8.6 thou/uL (4.0-11.0)
--- NOTE | 2019-06-30 10:00 | EKG ---
[place] [address] ELECTROCARDIOGRAM REPORT Name: ELIZABETH LOPEZ Room: [address] ADM IN M.R.#: [id number] Admission: 06/30/19 Attend Phys: Charles Au Discharge: Date of : 39 Report #: [id number] THIS REPORT FOR: //name// [facility] ED Test Date: 2019-06-30 Test Time: 05:03:31 Pat Name: ELIZABETH LOPEZ Department: Room: [facility] Gender: F Death Claim Clerk: PAULA : 1940 Requested By: Charles Syed Order Number: [id number] Tyrese MD: Frantz Mullins Measurements Intervals [place] Rate: 85 P: 65 AR: 48 QRS: -37 QRSD: 101 T: 78 QT: 425 QTc: 506 Interpretive Statements Sinus rhythm nonspecific st changes Short AR interval Probable left atrial enlargement Left axis deviation Prolonged QT interval Compared to ECG 06/27/2019 07:31:59 no change Electronically Signed On 06-30-2019 10:00:02 DIRECTOR ALLIANCE MARKETING by Frantz Mullins [email or web address] <ELECTRONICALLY SIGNED> By: Frantz Mullins MD, FACC 06/30/19 1000 0503 0503 Frantz Mullins MD, [facility] /EPI
--- NOTE | 2019-06-30 10:01 | EKG ---
[place] [address] ELECTROCARDIOGRAM REPORT Name: ELIZABETH LOPEZ Room: [address] ADM IN M.R.#: [id number] Admission: 06/30/19 Attend Phys: Charles Au Discharge: Date of : 39 Report #: [id number] THIS REPORT FOR: //name// [facility] ED Test Date: 2019-06-30 Test Time: 06:51:39 Pat Name: ELIZABETH LOPEZ Department: Room: [facility] Gender: F Translator Deaf: [place] : 1940 Requested By: Charles Syed Order Number: [id number] Tyrese MD: Frantz Mullins Measurements Intervals [place] Rate: 129 P: [place]: QRS: -50 QRSD: 102 T: 113 QT: 335 QTc: 491 Interpretive Statements Atrial fibrillation Left anterior fascicular block Probable anterior infarct, old Repol abnrm suggests ischemia, diffuse leads Baseline wander in lead(s) V3 Electronically Signed On 06-30-2019 10:01:16 METAL STORAGE WORKER by Frantz Mullins [email or web address] <ELECTRONICALLY SIGNED> By: Frantz Mullins MD, FACC 06/30/19 1001 0651 0651 Frantz Mullins MD, FAC /EPI
--- NOTE | 2019-06-30 10:23 | EKG ---
[place] [address] ELECTROCARDIOGRAM REPORT Name: ELIZABETH LOPEZ Room: [address] ADM IN M.R.#: [id number] Admission: 06/30/19 Attend Phys: Charles Au Discharge: Date of : 39 Report #: [id number] THIS REPORT FOR: //name// [facility] ED Test Date: 2019-06-30 Test Time: 06:53:22 Pat Name: ELIZABETH LOPEZ Department: Room: [facility] Gender: F Reconciliation Coordinator: [place] : 1940 Requested By: Charles Syed Order Number: [id number] Tyrese MD: Frantz Mullins Measurements Intervals [place] Rate: 136 P: [place]: QRS: -41 QRSD: 143 T: 145 QT: 356 QTc: 536 Interpretive Statements Atrial fibrillation left axis Left bundle branch block Electronically Signed On 06-30-2019 10:23:37 PHOTOGRAPHER STILL by Frantz Mullins [email or web address] <ELECTRONICALLY SIGNED> By: Frantz Mullins MD, [facility] 06/30/19 1023 0653 0653 Frantz Mullins MD, FACC /EPI
--- NOTE | 2019-06-30 10:24 | EKG ---
[place] [address] ELECTROCARDIOGRAM REPORT Name: ELIZABETH LOPEZ Room: [address] ADM IN M.R.#: [id number] Admission: 06/30/19 Attend Phys: Charles Au Discharge: Date of : 39 Report #: [id number] THIS REPORT FOR: //name// [facility] ED Test Date: 2019-06-30 Test Time: 06:54:52 Pat Name: ELIZABETH LOPEZ Department: Room: [facility] Gender: F Dredge Hand: [place] : 1940 Requested By: Charlse Syed Order Number: [id number] Tyrese MD: Frantz Mullins Measurements Intervals [place] Rate: 121 P: [place]: QRS: -34 QRSD: 156 T: 147 QT: 375 QTc: 532 Interpretive Statements Atrial fibrillation left axis Left bundle branch block Electronically Signed On 06-30-2019 10:24:04 PAINTINGS CONSERVATOR by Frantz Mullins [email or web address] <ELECTRONICALLY SIGNED> By: Frantz Mullins MD, [facility] 06/30/19 1024 0654 0654 Frantz Mullins MD, FACC /EPI
[2019-06-30 13:31] LABS: ANION GAP 10 mmol/L (7-16); BUN 8 mg/dL (7-18); CALCIUM 7.8 mg/dL (8.5-10.1); CHLORIDE 107 mmol/L (98-107); CO2 26 mmol/L (21-32); CREATININE 0.6 mg/dL (0.6-1.3); GLUCOSE 106 mg/dL (70-99); MAGNESIUM 1.9 mg/dL (1.8-2.4); SODIUM 143 mmol/L (136-145); TROPONIN-I LEVEL <0.06 ng/mL (<0.06)
[2019-06-30 13:36] LABS: POTASSIUM 2.8 mmol/L (3.5-5.1)
--- NOTE | 2019-06-30 15:30 | EKG ---
[place] [address] ELECTROCARDIOGRAM REPORT Name: ELIZABETH LOPEZ Room: [address] ADM IN M.R.#: [id number] Admission: 06/30/19 Attend Phys: Charles Au Discharge: Date of : 39 Report #: [id number] THIS REPORT FOR: //name// [facility] Test Date: 2019-06-30 Test Time: 10:29:24 Pat Name: ELIZABETH LOPEZ Department: Room: [address] Gender: F Fan Mail Clerk: [place] : 1940 Requested By: Aric Buenrostro Order Number: [id number] Tyrese MD: Frantz Mullins Measurements Intervals [place] Rate: 86 P: 40 [place]: 180 QRS: -37 QRSD: 92 T: 53 QT: 429 QTc: 513 Interpretive Statements Sinus rhythm Left axis deviation Prolonged QT interval Compared to ECG 06/30/2019 06:54:52 Atrial fibrillation no longer present Left bundle-branch block no longer present Electronically Signed On 06-30-2019 15:30:06 ADMINISTRATIVE SERVICES OFFICER by Frantz Mullins [email or web address] <ELECTRONICALLY SIGNED> By: Frantz Mullins MD, FACC 06/30/19 1530 1029 1029 Frantz Mullins MD, [facility] /EPI
[2019-06-30 16:00] VITALS: BP 127/81
--- NOTE | 2019-06-30 18:42 | NUR ---
PT ARRIVED TO UNIT AT APPROX 0845 VIA CART, PT UNABLE TO AMBULATE FOR TRANSFER. PT A&O X3, FORGETFUL AT TIMES, VSS, OIL SEAL ASSEMBLER TRACING SINUS RHYTHM, APHASIA PRESENT FROM PREVIOUS STROKE. PT TO HAVE EGD BUT K+ LEVEL REQUIRED TO BE 2.8 OR ABOVE, WILL CONT ATTEMPT AT INCREASING K+ LEVEL. EDUCATED ON NPO STATUS POST MIDNIGHT FOR PROCEDURE. HOURLY ROUNDING COMPLETED.
[2019-06-30 20:00] VITALS: BP 121/62
[2019-07-01] VITALS (7 sets, daily range): BP systolic 94–121; BP diastolic 50–65
[2019-07-01 05:14] LABS: ABSOLUTE EOSINOPHILS 0.5 thou/uL (0.0-0.7); ABSOLUTE LYMPHOCYTES 2.6 thou/uL (0.8-5.3); ABSOLUTE NEUTROPHILS 4.4 thou/uL (1.6-8.1); BASOPHILS 0.5 %; EOSINOPHILS 5.6 %; HEMATOCRIT 30.6 % (37.0-47.0); HEMOGLOBIN 10.5 gm/dL (12.0-15.0); MCH 31.1 pg (26.0-34.0); MCHC 34.3 g/dL (28.0-37.0); MCV 90.7 fL (80.0-100.0); MONOCYTES 12.2 %; MPV 9.2 fl. (7.2-11.1); NUCLEATED RBCS 0 /100WBC; PLATELET COUNT* 202 thou/uL (150-400); POLYS 51.7 %; RBC 3.37 mil/uL (4.20-5.00); RDW-CV 13.7 % (10.5-14.5); WBC 8.5 thou/uL (4.0-11.0)
[2019-07-01 05:36] LABS: CREATININE 0.6 mg/dL (0.6-1.3); MAGNESIUM 1.8 mg/dL (1.8-2.4)
[2019-07-01 05:49] LABS: POTASSIUM 3.9 mmol/L (3.5-5.1)
--- NOTE | 2019-07-01 07:49 | NUR ---
PT A+O X 2-3. ANSWERS MOSTLY YES/NO ANSWERS. PUT PT ON A PUREWICK WHEN SHE REPORTED SHE WAS INCONTINENT. PT HAD NOT VOIDED BY 0100 AND >360 ON BLADDER SCANNER. INSERTED HARDING. PT ALSO BECAME SOA SATING IN THE 80'S AROUND 0400. ROBERT URINE APPROX 400CC IMMEDITAE RETURN. STOPPED FLUIDS, PLACED ON 02, AND NOTIFIED RESPIRATORY. INITIALLY ON 8L- TITRATED DOWN TO 4L BY 0630 WITH O2 SAT IN THE MID 90'S. CALL LIGHT IN REACH. FREQUENT ROUNDING FOR SAFETY.
--- NOTE | 2019-07-01 08:56 | NUR ---
ASSUMED CARE OF PT THIS AM AROUND 0715- CHIEF COOK IN PLACE ORDERED, TRACING SR- UPON ASSESSMENT PT NOTED TO BE RESTING IN BED, EYE CLOSED- PT A&O X3- HARDING IN PLACE D/D CLEAR ROBERT URINE, INCONTINENT OF BOWEL- MAX ASSIST WITH TRANSFERS X2- COURSE LUNG SOUNDS NOTED WITH [id number]-[id number] COUGH NOTED- DYSPNEA NOTED ON EXERTION- VSS, O2 SAT 96% ON 4L VIA NC- ABD SOFT/ROUND/OBESE, BS X4 QUADS- LAST BM REPORTED 06/30/19- IV NOTED TO LEFT AC INTACT AND SL- 1X DOSE OF 20MG IV LASIX ORDERED AND GIVEN THIS AM PER CARDIOLOGY WITH 1X DOSE OF K+ 20 MEQ IV WELL- PT NPO THIS AM FOR PLANNED EGD- 1-2+ BLE EDEMA NOTED, LEFT ANKLE NOTED WITH BRUISING-PT NOTED TO HAVE LEFT UNIT VIA BED FOR EGD AT 0850- ALL NEEDS MET AT THIS TIME-WCTM
--- NOTE | 2019-07-01 11:11 | EKG ---
[place] [address] ELECTROCARDIOGRAM REPORT Name: ELIZABETH LOPEZ Room: [address] ADM IN M.R.#: [id number] Admission: 06/30/19 Attend Phys: Charles Au Discharge: Date of : 39 Report #: [id number] THIS REPORT FOR: //name// [facility] Test Date: 2019-07-01 Test Time: 09:10:19 Pat Name: ELIZABETH LOPEZ Department: Room: [address] Gender: F Water Taxi Driver: RT : 1940 Requested By: Aric Buenrostro Order Number: [id number] Tyrese MD: Frantz Mullins Measurements Intervals [place] Rate: 88 P: 54 [place]: 172 QRS: -33 QRSD: 98 T: 63 QT: 388 QTc: 470 Interpretive Statements Sinus rhythm Left axis deviation Borderline low voltage, extremity leads Compared to ECG 06/30/2019 10:29:24 Prolonged QT interval no longer present Electronically Signed On 07-01-2019 11:11:19 PARTS CATALOGUER by Frantz Mullins [email or web address] <ELECTRONICALLY SIGNED> By: Frantz Mullins MD, FACC 07/01/19 1111 0910 0910 Frantz Mullins MD, [facility] /EPI
--- NOTE | 2019-07-01 13:55 | NUR ---
MET WITH PT AND SPOUSE TO DISCUSS HOME SITUATION/DC PLANNING. PT LIVES WITH SPOUSE, DTR COMES TO ASSIST WITH CARE. SPOUSE STATES THAT PT HAS HAD FALLS AND THAT HE AND DTR ARE TO A POINT WHERE THEY ARE UNABLE TO HANDLE HER AT HOME UNTIL SHE IS STRONGER. HE HAS LOOKED INTO SNF AND IS INTERESTED IN [facility] IN [place], IF NOT THERE, THEN POSSIBLE [facility]. PT IS NOT AGREEABLE, SHE AND SPOUSE PLAN TO DISCUSS FURTHER. PT HAD RECENT HOSPITAL STAY THIS MONTH AND WAS DC'D A WEEK AGO. PT HAS WALKER, CANE AND W/C. ALSO HAS DONE OUTPT THERAPY AT [facility]. DID CALL AND FAX REFERRAL TO [facility], SPOKE WITH NICK. THEY ARE ABLE TO ACCEPT PT ONCE URINE CULTURE RESULTS ARE AVAILABLE AND COULD TAKE PT OVER THE HOLIDAY WEEKEND. CM TO FOLLOW AND ASSIST [facility] IN [place] [phone] FAX
[2019-07-02] VITALS: BP 126/62
[2019-07-02 04:00] VITALS: BP 131/71
[2019-07-02 04:34] LABS: ABSOLUTE EOSINOPHILS 0.3 thou/uL (0.0-0.7); ABSOLUTE LYMPHOCYTES 1.7 thou/uL (0.8-5.3); ABSOLUTE MONOCYTES 1.2 thou/uL (0.0-1.2); ABSOLUTE NEUTROPHILS 6.8 thou/uL (1.6-8.1); BASOPHILS 0.5 %; HEMOGLOBIN 10.3 gm/dL (12.0-15.0); LYMPHOCYTES 16.6 %; MCH 30.6 pg (26.0-34.0); MCHC 33.3 g/dL (28.0-37.0); MCV 91.8 fL (80.0-100.0); MPV 9.2 fl. (7.2-11.1); NUCLEATED RBCS 0 /100WBC; PLATELET COUNT* 188 thou/uL (150-400); POLYS 67.9 %; RBC 3.38 mil/uL (4.20-5.00)
[2019-07-02 04:47] LABS: CREATININE 0.6 mg/dL (0.6-1.3); POTASSIUM 3.7 mmol/L (3.5-5.1)
[2019-07-02 08:00] VITALS: BP 119/72
--- NOTE | 2019-07-02 08:00 | NUR ---
AM ASSESSMENT COMPLETE, DEFER TO COMPUTER CHARTING. CARDIAC MONTIOR TRACKING SR. ALERT ORIENTED, SPEECH SLURRED WITH EXPRESSIVE APHASIA AT TIMES. DENIES NAUSEA, DIZZINESS OR ANY DISCOMFORT AT THIS TIME. GENERALIZED 2+ EDEMA, LUNGS DIMINISHED WITH CRACKLES AND WHEEZE - 02 ON 3L PER NC. HOB ELEVATED CALL LIGHT WITHIN REACH. WILL MONITOR.
[2019-07-02 13:16] VITALS: BP 130/99
[2019-07-02 17:03] VITALS: BP 145/65
--- NOTE | 2019-07-02 17:53 | NUR ---
WATERPROOF MATERIAL FOLDER TRACKING ST. REMAINS ALERT ORINETED. 02 REMAINS ON 3L PER NC - PATIENT HAD SM AMT OF BLOODY NOSE EARLIER, HUMIDITY APPLIED TO 02 NO FURTHER BLEEDING FROM NOSE NOTED. TOLERATING GI PREP WITH NO COMPLAINTS OF NAUSEA - PATIENT HAD 1 MOD SIZE LOOSE DARK UNFORMED STOOL, BROOKE CARE GIVEN. CALL PLACED TO GIVE UPDATE ON BOWEL PREP DR LIM TO NOTIFY. WILL CONTINUE WITH PLAN OF CARE.
[2019-07-02 19:30] VITALS: BP 124/69
[2019-07-03] VITALS (7 sets, daily range): BP systolic 91–125; BP diastolic 47–59
[2019-07-03 04:37] LABS: ABSOLUTE BASOPHILS 0.1 thou/uL (0.0-0.2); ABSOLUTE EOSINOPHILS 0.2 thou/uL (0.0-0.7); ABSOLUTE LYMPHOCYTES 2.1 thou/uL (0.8-5.3); ABSOLUTE MONOCYTES 1.3 thou/uL (0.0-1.2); ABSOLUTE NEUTROPHILS 6.8 thou/uL (1.6-8.1); BASOPHILS 1.2 %; EOSINOPHILS 1.9 %; HEMATOCRIT 33.8 % (37.0-47.0); HEMOGLOBIN 11.3 gm/dL (12.0-15.0); MCH 30.6 pg (26.0-34.0); MCHC 33.5 g/dL (28.0-37.0); MCV 91.4 fL (80.0-100.0); MONOCYTES 12.3 %; NUCLEATED RBCS 0 /100WBC; PLATELET COUNT* 229 thou/uL (150-400); POLYS 64.6 %; RBC 3.69 mil/uL (4.20-5.00); RDW-CV 13.9 % (10.5-14.5); WBC 10.5 thou/uL (4.0-11.0)
[2019-07-03 05:03] LABS: CALCIUM 8.1 mg/dL (8.5-10.1); CREATININE 0.6 mg/dL (0.6-1.3); MAGNESIUM 1.5 mg/dL (1.8-2.4)
[2019-07-03 05:09] LABS: POTASSIUM 2.9 mmol/L (3.5-5.1)
--- NOTE | 2019-07-03 06:46 | NUR ---
PT SLEPT MOST OF SHIFT. ASSESSMENT DOCUMENTED. MEDS GIVEN PER E-OCT. IV PATENT. PT FINISHED BOWEL PREP. PT INCONTINENT OF STOOL THIS SHIFT. STOOLS, NOT CLEAR THIS AM. BISCODYL TAKEN PER ORDER. POTASSIUM BEING REPLACED PER E-OCT. PT REPORTED DIFFICULTY BREATHING AT BEGINING OF SHIFT, DR NOTIFIED, ORDERS RECIEVED. WILL CONTINUE WITH PLAN OF CARE.
--- NOTE | 2019-07-03 14:36 | NUR ---
FAXED UPDATED CLINICALS TO ATTN: [facility]. FACILITY DOES NOT HAVE WEEKEND TRANSPORT. FAX" [phone]. PHONE: [phone]
--- NOTE | 2019-07-03 18:26 | NUR ---
PT. COMPLETED BOWEL PREP AND COLONOSCOPY. RETURNED AND ATE FULL MEAL WITHOUT INCIDENT. PLAN FOR PT. TO DC TO [place] TOMORROW, PER CM PT. ABLE TO DC ON 07/04.
--- NOTE | 2019-07-04 03:46 | NUR ---
PT HAS RESTED T/O NIGHT WITHOUT COMPLAINT ON HOURLY ROUNDINGS. PT PROGRESSING TOWARDS GOALS. CALL LIGHT IN REACH
[2019-07-04 04:43] LABS: ABSOLUTE BASOPHILS 0.1 thou/uL (0.0-0.2); ABSOLUTE EOSINOPHILS 0.3 thou/uL (0.0-0.7); ABSOLUTE LYMPHOCYTES 2.5 thou/uL (0.8-5.3); ABSOLUTE MONOCYTES 1.2 thou/uL (0.0-1.2); ABSOLUTE NEUTROPHILS 6.6 thou/uL (1.6-8.1); BASOPHILS 0.5 %; EOSINOPHILS 3.1 %; HEMATOCRIT 30.4 % (37.0-47.0); HEMOGLOBIN 10.3 gm/dL (12.0-15.0); LYMPHOCYTES 23.3 %; MCH 30.7 pg (26.0-34.0); MCHC 33.8 g/dL (28.0-37.0); MCV 90.9 fL (80.0-100.0); MPV 9.5 fl. (7.2-11.1); NUCLEATED RBCS 0 /100WBC; PLATELET COUNT* 226 thou/uL (150-400); POLYS 62.1 %; RBC 3.35 mil/uL (4.20-5.00); RDW-CV 13.8 % (10.5-14.5); WBC 10.6 thou/uL (4.0-11.0)
[2019-07-04 04:54] LABS: CREATININE 0.7 mg/dL (0.6-1.3)
[2019-07-04 04:55] LABS: CALCIUM 8.5 mg/dL (8.5-10.1); MAGNESIUM 1.7 mg/dL (1.8-2.4)
[2019-07-04 04:59] LABS: POTASSIUM 4.6 mmol/L (3.5-5.1)
[2019-07-04 08:00] VITALS: BP 102/60
[2019-07-04 09:20] VITALS: BP 102/60
[2019-07-04] MEDS ORDERED: CARDIZEM CD120 MG PO (12:43)
[2019-07-04] MEDS ORDERED: PROTONIX40 M2 PO (12:48)
[2019-07-04] MEDS ORDERED: PROPAFENONE 15150 MG PO (12:51)
--- NOTE | 2019-07-04 21:42 | CON ---
[address] [address] CONSULTATION Name: ELIZABETH LOPEZ Room: [address] IN M.R.#: [id number] Admission: 06/30/19 Attend Phys: Charles Au Discharge: 07/04/19 Date of : 38 Report #: [id number] THIS REPORT FOR: //name// CC: Kenny Hargrove DO [facility] DICTATED BY: Jazmyn Weiss [facility] DATE OF SERVICE: 06/30/2019 Please note at the time of this dictation, the patient was seen and physically examined by myself. REASON FOR CONSULTATION: GI bleed. HISTORY OF PRESENT ILLNESS: This is a pleasant 79-year-old female who presented to the Emergency Room after having a black tarry stool. She states it was pretty significant in amount and very loose. She states normally her bowels are every several days and they are hard pellets and she has a tendency towards constipation. She also was experiencing some mild epigastric pain associated with this as well. She denies any nausea or vomiting at this particular time. The patient does have a history of a stroke and is on Eliquis for this. Her last dose of Eliquis was yesterday morning. The patient did undergo an EGD and colonoscopy back in 2006. EGD was completely normal. Colonoscopy showed diverticulosis with repeat in 10 years. ALLERGIES: STATINS, METFORMIN. MEDICATIONS FROM HOME: Lasix, Synthroid, potassium, Cardizem, vitamin D, glipizide, Flagyl, Cipro, Zetia, and Eliquis. PAST MEDICAL HISTORY: Fatty liver disease, calcification of her aortic valve, atherosclerosis, hypothyroid, diabetes, history of stroke. PAST SURGICAL HISTORY: Cholecystectomy. FAMILY HISTORY: Noncontributory. SOCIAL HISTORY: Lives at home with her . Denies any alcohol, tobacco or illegal drug use. REVIEW OF SYSTEMS: Twelve-point review of systems is essentially negative except what is mentioned in the HPI. PHYSICAL EXAMINATION: [place] [address] CONSULTATION Name: ELIZABETH LOPEZ Room: [address]#: [id number] Admission: 06/30/19 Attend Phys: Charles rausch [place] Discharge: 07/04/19 Date of : 38 Report #: [id number] VITAL SIGNS: Temperature 36.6, pulse 110, respirations 16, blood pressure 116/68. HEART: Regular rate and rhythm. LUNGS: Diminished, but clear. ABDOMEN: Soft, positive bowel sounds in all 4 quadrants with epigastric tenderness noted to palpation. LABORATORY DATA: Hemoglobin 12.2 when she came in and it is 11.8, white count is 8.6, platelets 210. Potassium was 2.8 on admission. She received oral potassium and IV potassium as well. GFR is 69. PT is 11.2, INR is 1.1. CT of the abdomen and pelvis showed slight lobulation of liver, diverticular disease and absent gallbladder. IMPRESSION: 1. Epigastric pain. 2. Melenotic stool. 3. Hypokalemia, has been replaced in getting a stat potassium. 4. Anticoagulant therapy, Eliquis, secondary stroke. 5. History of fatty liver disease. PLAN: 1. Stat potassium. 2. EGD today with Dr. Mitchell. 3. Protonix 40 mg IV b.i.d. 4. Holding Eliquis. 5. Ultrasound of the abdomen to further evaluate for lobulation of her liver more thoroughly. Thank you for allowing us to participate in this patient's care. Please do not hesitate to call with any questions in regard to this consult. <ELECTRONICALLY SIGNED> By: Sarbjit Mitchell DO 07/04/19 2142 1037 1050Sarbjit Mitchell DO /nt
--- NOTE | 2019-07-07 12:06 | PATH ---
[address] [address] PATHOLOGY RPT PROCEDURE Name: ELIZABETH ALDRICH Room: [address] IN ..#: [id number] Admission: 06/30/19 Date of : 38 Discharge: 07/04/19 Report #: [id number] Path Case #: [id number] [facility] Accession Number: [id number] . 01 Material submitted: . PART A: cecum - CECAL POLYP PART B: colon - PROXIMAL ASCENDING COLON POLYPS X3. Modifiers: proximal, ascending . 01 Clinical history: . GI bleed . 02 Diagnosis: A. Cecal polyp: - Tubular adenoma, negative for high grade dysplasia. . B. Proximal ascending colon polyps x3: - Multiple tubular adenomas, negative for high grade dysplasia. . (JONATAN:minh; 07/07/2019) QL 07/07/2019 1027 Local . 02 Electronically signed: . Herrera Goldman MD, Pathologist NPI- [id number] . 01 Gross description: . A. The specimen is received in formalin, labeled "Elizabeth Aldrich, cecal polyp" and consists of 3 fragments of pink-felder tissue measuring between 0.2 x 0.1 cm and 0.3 x 0.3 cm which are entirely submitted in A1. . B. The specimen is received in formalin, labeled "Elizabeth Aldrich, proximal ascending colon polyps x3" and consists of multiple fragments of pink-felder tissue measuring 1.1 x 0.5 x 0.2 cm in aggregate which are entirely submitted in B1. (SDY; 07/06/2019) /SYU 07/06/2019 1511 Local . 02 Pathologist provided ICD-10: D12.0, D12.2 . 02 CPT . 013662, 749007 Specimen Comment: A courtesy copy of this report has been sent to [phone] Specimen Comment: [phone] Specimen Comment: Report sent to ,DR TALBERT / DR LUO Specimen Comment: A duplicate report has [place] [address] PATHOLOGY RPT PROCEDURE Name: ELIZABETH ALDRICH B Room: [address] IN .R.#: [id number] Admission: 06/30/19 Date of : 38 Discharge: 07/04/19 Report #: [id number] Path Case #: [id number] updates. Performed at: 01 [facility] [place] [address], [place], [place] [id number] MD Barrett Puentes MD Phone: [phone] Performed at: 02 [facility] [address], [place], [place] [id number] MD Herrera Goldman MD Phone: [phone]
== END 2019-07-04 13:45 | DRG 378 ==
LOC: M.ERS 04:55 → M.TBA-ER 06:46 → M.2W 06:46
PROVIDERS: Emergency Medicine; Internal Medicine; Internal Medicine Gastroenterology; ADMIT Family Medicine
PROC: 0DJ08ZZ Inspection of Upper Intestinal Tract, Via Natural or Artificial Opening Endoscopic (ICD-10-PCS; principal; 2019-07-01)
PROC: 0DBK8ZX Excision of Ascending Colon, Via Natural or Artificial Opening Endoscopic, Diagnostic (ICD-10-PCS; 2019-07-03)
PROC: 0DBH8ZX Excision of Cecum, Via Natural or Artificial Opening Endoscopic, Diagnostic (ICD-10-PCS; 2019-07-03)
DX: K57.31 Diverticulosis of large intestine without perforation or abscess with bleeding (principal); N39.0 Urinary tract infection, site not specified; E44.0 Moderate protein-calorie malnutrition; D62 Acute posthemorrhagic anemia; K76.0 Fatty (change of) liver, not elsewhere classified; E87.6 Hypokalemia; E11.9 Type 2 diabetes mellitus without complications; E78.5 Hyperlipidemia, unspecified; E03.9 Hypothyroidism, unspecified; E83.42 Hypomagnesemia; S92.912A Unspecified fracture of left toe(s), initial encounter for closed fracture; I08.0 Rheumatic disorders of both mitral and aortic valves; I48.0 Paroxysmal atrial fibrillation; I10 Essential (primary) hypertension; K63.5 Polyp of colon; I95.9 Hypotension, unspecified; K64.4 Residual hemorrhoidal skin tags; S80.00XA Contusion of unspecified knee, initial encounter; Z79.01 Long term (current) use of anticoagulants; I25.2 Old myocardial infarction; Z86.73 Personal history of transient ischemic attack (TIA), and cerebral infarction without residual deficits; Z90.49 Acquired absence of other specified parts of digestive tract; Z79.2 Long term (current) use of antibiotics; Z79.899 Other long term (current) drug therapy; Z88.8 Allergy status to other drugs, medicaments and biological substances; Z68.33 Body mass index [BMI] 33.0-33.9, adult; Z82.49 Family history of ischemic heart disease and other diseases of the circulatory system; Z87.891 Personal history of nicotine dependence; W19.XXXA Unspecified fall, initial encounter; Y93.89 Activity, other specified; Y92.098 Other place in other non-institutional residence as the place of occurrence of the external cause; Y99.8 Other external cause status